=== PATIENT | male | born 1975 | race Caucasian/White ===

== ENCOUNTER 2017-01-28 21:05 | Emergency (ER) | payer OTHER ==
[~2017-01-28] VITALS: Ht 170.2 cm; Wt 81.6 kg
[~2017-01-28 21:05] MED LIST: CETI10TA22 PO; DEXT25CA4 PO; HYDR-971 PO; LAMO200T3 PO; OMEP40CA5 PO; TRAZ50TA15 PO
[2017-01-28 21:12] VITALS: BP 159/92
[2017-01-28] MEDS ORDERED: HYDR-971 PO (22:12)
--- NOTE | 2017-01-28 22:13 | PHYS DOC ---
Past Medical History Past Medical History: Seizure, Other Additional Past Medical Histor: chronic pain Past Surgical History: Other Additional Past Surgical Histo: hip replacement Alcohol Use: None Drug Use: None Adult General Chief Complaint Chief Complaint: HAND PROBLEM HPI HPI Patient is a 41 year old medical presents with moderate right ring finger knuckle pain that began today after he hit his hand on a wall. He states his pain is worse on flexion of the finger. Patient is right-handed. Review of Systems Review of Systems Constitutional: Denies fever or chills [] Musculoskeletal: right ring finger knuckle pain Integument: Denies rash or skin lesions [] Neurologic: Denies headache, focal weakness or sensory changes [] All other systems were reviewed and found to be within normal limits, except as documented in this note. Allergies Allergies Allergies Coded Allergies Type Severity Reaction Last Updated Verified Penicillins Allergy Intermediate Unknown 03/08/16 Yes morphine Adverse Reaction Mild "makes me sick" 03/08/16 No Physical Exam Physical Exam Constitutional: Well developed, well nourished, no acute distress, non-toxic appearance. [] Skin: Warm, dry, no erythema, no rash. [] Extremities: Obvious deformity noted on the right ring finger knuckle. Tenderness on palpation of the right fifth finger knuckle. Patient able to flex and extend the right fingers. +2 right radial pulse. Adequate medial and radius sensation to the right hand. Cap refill less than 2 seconds the right fingers. Neurologic: Alert and oriented X 3, normal motor function, normal sensory function, no focal deficits noted. [] Psychologic: Affect normal, judgement normal, mood normal. [] Current Patient Data Vital Signs Vital Signs Date Time Temp Pulse Resp B/P (MAP) Pulse Ox O2 Delivery O2 Flow Rate FiO2 01/28/17 21:12 98.2 95 20 96 Room Air 98.2 EKG EKG [] Radiology/Procedures Radiology/Procedures [] Course & Med Decision Making Course & Med Decision Making Pertinent Labs and Imaging studies reviewed. (See chart for details) Patient is in the ED with right hand pain after hitting his hand on a wall. Right hand x-rays interpreted by Dr. Rosenbaum were noted for right ring distal metacarpal fracture. Patient was placed in the ulnar gutter splint by the veterinary laboratory technician. His vascular exam done by me is normal, cap refill less than 2 seconds. Follow-up with orthopedic hand surgeon tomorrow. Dragon Disclaimer Dragon Disclaimer This electronic medical record was generated, in whole or in part, using a voice recognition dictation system. Departure Departure Impression: Primary Impression: Metacarpal bone fracture Disposition: 01 HOME, SELF-CARE Condition: STABLE Referrals: CHERIE RODRIGUEZ MD (PCP) ROWENA RODRIGUES MD follow up in one day Patient Instructions: Hand Fracture, Metacarpals Additional Instructions: You were seen for right hand fracture. Ice elevate the extremity. Follow-up with the provided orthopedic doctor to be seen by a hand surgeon. Call his office tomorrow. Scripts Hydrocodone/Apap 5-325 (NORCO 5-325 TABLET) 1 Each Tablet 1 TAB PO Q6-8HRS Y for PAIN, #14 TAB Prov: ALEJANDRO ALEGRE APRN 01/28/17 Problem Qualifiers Primary Impression: Metacarpal bone fracture Encounter type: initial encounter Metacarpal bone: fourth Fracture type: open Metacarpal location: other portion of metacarpal Fracture alignment: nondisplaced Laterality: right Qualified Codes: S62.394B - Other fracture of fourth metacarpal bone, right hand, initial encounter for open fracture ALEJANDRO ALEGRE APRN Jan 28, 2017 22:12
--- NOTE | 2017-01-29 07:18 | RAD ---
3 views right hand radiograph 01/28/2017 Clinical indication: Right hand pain. Comparison: Right hand radiograph 04/11/2016 Findings: There is near-complete healing of a fifth metacarpal neck fracture with palmar angulation of the distal fracture fragment. There is an acute transverse fracture of the fourth metacarpal neck with palmar angulation of the distal fracture fragment. No evidence of intra-articular extension. There is soft tissue swelling about the hand. Impression: 1. Acute fracture of the fourth metacarpal neck with palmar angulation of the distal fracture fragment. 2. Near complete healing of fifth metacarpal neck fracture with palmar angulation of the distal fracture fragment.
== END 2017-01-28 22:24 | disposition home or self-care (01) ==
LOC: ER 21:05
DX: S62.394B Other fracture of fourth metacarpal bone, right hand, initial encounter for open fracture (principal); G89.29 Other chronic pain; Z88.0 Allergy status to penicillin; Z88.5 Allergy status to narcotic agent; W22.01XA Walked into wall, initial encounter; Y93.89 Activity, other specified; Y99.8 Other external cause status; Y92.89 Other specified places as the place of occurrence of the external cause
CPT/HCPCS: 29125; 73130; 99284-25

== ENCOUNTER → 2017-07-07 | Outpatient (CLI) | payer OTHER | END | disposition home or self-care (01) | LOC: RT 07:58 | DX: R56.9 Unspecified convulsions (principal) | CPT/HCPCS: 95816 ==

== ENCOUNTER 2018-01-04 22:01 | Emergency (ER) | payer OTHER ==
[~2018-01-04] VITALS: Ht 171.4 cm; Wt 91.2 kg
[~2018-01-04 22:01] MED LIST changes: +ALBU2.5V5; +ALBU8.5H8 IH; +BENZ200C47 PO; +CLON1TAB4 PO; +DEXT20TA24 PO; +FLUT1DIS5 INH; +LAMO200T2 PO; +LORA10TA3 PO; +NABU500T PO; +OXYC20TA PO; +PHEN100C PO; +TRAZ-85 PO; -TRAZ50TA15 PO
[2018-01-04] MEDS ORDERED: IPRATRPIUM/ALBUTEROL 0.5/2.5MG 3 ML NEBU. NEB ONE (23:55)
[2018-01-04] MEDS ORDERED: methylPREDNISolone SOD SUCC PF 125 MG/2 ML VIAL. IV ONE (23:55)
[2018-01-05] MEDS ORDERED: ALBUTEROL SULFATE 2.5 MG/3 ML NEBU. CONT NEB ONE (00:45)
[2018-01-05 02:09] VITALS: BP 150/78
--- NOTE | 2018-01-05 02:31 | PHYS DOC ---
Past Medical History Past Medical History: Asthma, Seizure, Other Additional Past Medical Histor: chronic pain, ADHD Past Surgical History: Other Additional Past Surgical Histo: hip replacement, HERNIA Alcohol Use: None Drug Use: None Adult General Chief Complaint Chief Complaint: SHORTNESS OF BREATH HPI HPI Patient is a 42 year old male who presents with dyspnea and chest tightness. Patient has a known history of asthma. He states it has been exacerbated over the last week. He has been using medications at home with no relief. He was seen at his primary care doctor's office and given a prednisone taper but states the symptoms still worsened today. He has been on the prednisone for several days now. No fever or chills. He complains of some "tightness" in his chest. He does not have overt chest pain. No history of coronary artery disease. No fever or chills. He does have a dry, hacking type cough. Nonproductive. The patient is already taking Levaquin for treatment of respiratory infection. Review of Systems Review of Systems Constitutional: Denies fever or chills Eyes: Denies change in visual acuity HENT: Denies nasal congestion or sore throat Respiratory: as above GI: Denies abdominal pain Musculoskeletal: Denies back pain Integument: Denies rash Neurologic: Denies headache All other systems were reviewed and found to be within normal limits, except as documented in this note. Current Medications Current Medications Current Medications Medications (Trade) Dose Ordered Sig/Charleen Start Time Stop Time Status Last Admin Dose Admin Albuterol Sulfate (Ventolin Neb Soln) 10 mg 1X ONCE 01/05/18 00:45 01/05/18 00:47 DC 01/05/18 01:02 10 MG Albuterol/ Ipratropium (Duoneb) 3 ml 1X ONCE 01/04/18 23:55 01/04/18 23:56 DC 01/04/18 23:52 3 ML Methylprednisolone Sodium Succinate (SOLU-Medrol 125MG VIAL) 125 mg 1X ONCE 01/04/18 23:55 01/04/18 23:56 DC 01/05/18 00:31 125 MG Allergies Allergies Allergies Coded Allergies Type Severity Reaction Last Updated Verified Penicillins Allergy Intermediate Unknown 03/08/16 Yes levetiracetam Allergy Intermediate Unknown 04/12/17 Yes morphine Adverse Reaction Mild "makes me sick" 04/12/17 Yes Physical Exam Physical Exam Constitutional: Well developed, well nourished, no acute distress, non-toxic appearance HENT: Normocephalic, atraumatic, bilateral external ears normal, oropharynx moist Eyes: PERRLA Neck: Normal range of motion, no tenderness, supple Cardiovascular:Heart rate regular rhythm, no murmur Lungs & Thorax: wheezes bilaterally with prolonged exp phase and diminished air flow Abdomen: Bowel sounds normal, soft, no tenderness Skin: Warm, dry, no rash Extremities: No tenderness, no edema Neurologic: Alert and oriented X 3 Psychologic: Affect normal Current Patient Data Vital Signs Vital Signs Date Time Temp Pulse Resp B/P (MAP) Pulse Ox O2 Delivery O2 Flow Rate FiO2 01/05/18 01:00 94 Room Air 01/05/18 00:37 93 22 152/71 (98) 01/04/18 22:45 98.8 98.8 Lab Values Laboratory Tests Test 01/05/18 00:13 Troponin I Quantitative < 0.017 ng/mL (0.000-0.055) EKG EKG No STEMI Interpretation Time: 00:10 Radiology/Procedures Radiology/Procedures [] Course & Med Decision Making Course & Med Decision Making Pertinent Labs and Imaging studies reviewed. (See chart for details) Patient was evaluated in the emergency department for asthma and tach. He did have some chest tightness on EKG and troponin were completed. These were negative for any acute findings. In the ER, he received 1 DuoNeb followed by an hour-long albuterol treatment. After that, he was much improved. His lungs were clear. Patient was ready for discharge home. He was advised to continue his current regimen at home. He is already taking a prednisone taper and is currently taking the levofloxacin. Patient was advised to come back to the ER for any new or worsening symptoms. Otherwise, follow up with his primary care doctor. Dragon Disclaimer Dragon Disclaimer This electronic medical record was generated, in whole or in part, using a voice recognition dictation system. Departure Departure Impression: Primary Impression: Asthma exacerbation Disposition: HOME, SELF-CARE Condition: GOOD Patient Instructions: Asthma, Acute Bronchospasm, Asthma Attacks, Prevention ASHLEY FUENTES DO Jan 05, 2018 02:31
--- NOTE | 2018-01-05 04:00 | EKG ---
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
== END 2018-01-05 02:40 | disposition home or self-care (01) ==
LOC: ER 22:01
DX: J45.901 Unspecified asthma with (acute) exacerbation (principal); G89.29 Other chronic pain; Z88.0 Allergy status to penicillin; Z88.1 Allergy status to other antibiotic agents; Z88.5 Allergy status to narcotic agent
CPT/HCPCS: 36415; 84484; 93005; 94640; 94644; 96374; 99285; J2930; J7613; J7620

== ENCOUNTER 2019-02-23 03:30 | Inpatient (IN) | payer OTHER ==
[~2019-02-23] VITALS: Ht 170.2 cm; Wt 96.4 kg
[~2019-02-23 03:30] MED LIST changes: +ALBU2.5V8 IH; -ALBU8.5H8 IH; -CLON1TAB4 PO; +CLONAZEPAM1 MG PO; +HYDR-3164 PO; -HYDR-971 PO; -LAMO200T2 PO; +LAMO200T6 PO; +OMEP40CA45 PO; -OMEP40CA5 PO; +TRAZ-118 PO; -TRAZ-85 PO
[2019-02-23 04:13] LABS: CREATININE ISTAT 0.8 mg/dL (0.5-1.4); ION CA ISTAT 1.14 mmol/L (1.13-1.32); POTASSIUM ISTAT 3.3 mmol/L (3.5-5.0)
[2019-02-23 04:47] LABS: BASO # 0.1 x10^3/uL (0.0-0.2); BASO % 0 % (0-3); EOS # 0.2 x10^3/uL (0.0-0.7); EOS % 2 % (0-3); HEMATOCRIT 46.6 % (39.0-53.0); HEMOGLOBIN 15.5 g/dL (13.0-17.5); LYMPH # 3.3 x10^3/uL (1.0-4.8); LYMPH % 28 % (24-48); MEAN CORPUSCULAR HEMOGLOBIN 32 pg (25-35); MEAN CORPUSCULAR HGB CONC 33 g/dL (31-37); MEAN CORPUSCULAR VOLUME 97 fL (79-100); MONO # 1.3 x10^3/uL (0.0-1.1); MONO % 11 % (0-9); NEUT # 6.9 x10^3/uL (1.8-7.7); NEUT % 59 % (31-73); PLATELET COUNT 269 x10^3/uL (140-400); RED BLOOD COUNT 4.79 x10^6/uL (4.30-5.70); RED CELL DISTRIBUTION WIDTH 13.1 % (11.5-14.5); WHITE BLOOD COUNT 11.8 x10^3/uL (4.0-11.0)
--- NOTE | 2019-02-23 04:57 | RAD ---
EXAM: CHEST 1 VIEW History: Shortness of breath COMPARISON: 04/09/2017 TECHNIQUE: Single portable radiograph of the chest FINDINGS: The cardiac silhouette is unremarkable. The lungs are clear bilaterally. The costophrenic sulci are clear and well demarcated. IMPRESSION: No radiographic evidence of an acute cardiopulmonary process. Electronically signed by: Maxime Marshall MD (02/23/2019 4:54 AM) [facility]
[2019-02-23] MEDS ORDERED: IPRATRPIUM/ALBUTEROL 0.5/2.5MG 3 ML NEBU. NEB ONE ×2 (05:00→07:00)
[2019-02-23 05:05] LABS: CALCIUM 9.1 mg/dL (8.5-10.1); CREATININE 0.9 mg/dL (0.7-1.3); GFR 91.3; POTASSIUM 3.6 mmol/L (3.5-5.1)
[2019-02-23 05:10] LABS: ALBUMIN 3.8 g/dL (3.4-5.0); ALBUMIN/GLOBULIN RATIO 1.2 (1.0-1.7); TOTAL BILIRUBIN 0.2 mg/dL (0.2-1.0)
--- NOTE | 2019-02-23 05:25 | PHYS DOC ---
Past Medical History Past Medical History: Anxiety, Asthma, Bipolar, Seizure, Other Additional Past Medical Histor: chronic pain, ADHD (MUKESH CARTER MD) Past Surgical History: Other Additional Past Surgical Histo: hip replacement, HERNIA (MUKESH CARTER MD) Alcohol Use: None Drug Use: None (MUKESH CARTER MD) Adult General Chief Complaint Chief Complaint: SHORTNESS OF BREATH HPI HPI 43-year-old male presents to the emergency Department complaints of shortness of breath. Patient was seen by his primary care physician on secondary to shortness of breath with known asthma and cough. He was prescribed prednisone at that time with a taper he states he finished on Thursday. Patient describes continued shortness of breath worsening tonight. He does have 2 inhalers at home 1 including albuterol. Others unknown. Denies any fever, productive cough, does describe shortness of breath with exertion. Patient as well describes chest wall pain. Saturations 88-89% on room air. Patient provided with duoneb and steroids upon arrival (MUKESH CARTER MD) Review of Systems Review of Systems Constitutional: Denies fever or chills [] Eyes: Denies change in visual acuity, redness, or eye pain [] HENT: Denies nasal congestion or sore throat [] Respiratory: + cough/SOB Cardiovascular: No additional information not addressed in HPI [] GI: Denies abdominal pain, nausea, vomiting, bloody stools or diarrhea [] Neurologic: Denies headache, focal weakness or sensory changes [] All other systems were reviewed and found to be within normal limits, except as documented in this note. (MUKESH CARTER MD) Current Medications Current Medications Current Medications Medications (Trade) Dose Ordered Sig/Charleen Start Time Stop Time Status Last Admin Dose Admin Acetaminophen (Tylenol) 1,000 mg 1X ONCE 02/23/19 06:00 02/23/19 06:01 DC 02/23/19 05:57 1,000 MG Albuterol/ Ipratropium (Duoneb) 3 ml 1X ONCE 02/23/19 07:00 02/23/19 07:01 DC 02/23/19 06:30 3 ML Methylprednisolone Sodium Succinate (SOLU-Medrol 125MG VIAL) 125 mg 1X ONCE 02/23/19 06:00 02/23/19 06:01 DC 02/23/19 05:57 125 MG (LUCY MUNSON Jr. DO) Allergies Allergies Allergies Coded Allergies Type Severity Reaction Last Updated Verified Penicillins Allergy Intermediate 02/23/19 Yes levetiracetam Allergy Intermediate 02/23/19 Yes morphine Adverse Reaction Mild "makes me sick" 04/12/17 Yes (LUCY MUNSON Jr. DO) Physical Exam Physical Exam Constitutional: Well developed, well nourished, no acute distress, non-toxic appearance. [] HENT: Normocephalic, atraumatic, bilateral external ears normal, oropharynx moist, no oral exudates, nose normal. [] Eyes: PERRLA, EOMI, conjunctiva normal, no discharge. [] Cardiovascular: RRR, no murmur appreciated Lungs & Thorax: decreased bs bilaterally, wheeze appreciated to bilateral, tach ypnea Abdomen: Bowel sounds normal, soft, no tenderness, no masses, no pulsatile masses. [] Skin: Warm, dry, no erythema, no rash. [] Back: No tenderness, no CVA tenderness. [] Extremities: No tenderness, no edema. [] Neurologic: Alert and oriented X 3, no focal deficits noted. [] Psychologic: Affect normal, judgement normal, mood normal. [] (MUKESH CARTER MD) Current Patient Data Vital Signs Vital Signs Date Time Temp Pulse Resp B/P (MAP) Pulse Ox O2 Delivery O2 Flow Rate FiO2 02/23/19 07:17 88 124/71 (88) 92 Nasal Cannula 2.0 02/23/19 03:40 97.6 20 97.6 (LUCY MUNSON Jr. DO) Lab Values Laboratory Tests Test 02/23/19 01:32 02/23/19 04:08 02/23/19 04:15 White Blood Count 11.8 x10^3/uL (4.0-11.0) H Red Blood Count 4.79 x10^6/uL (4.30-5.70) Hemoglobin 15.5 g/dL (13.0-17.5) Hematocrit 46.6 % (39.0-53.0) Mean Corpuscular Volume 97 fL (79-100) Mean Corpuscular Hemoglobin 32 pg (25-35) Mean Corpuscular Hemoglobin Concent 33 g/dL (31-37) Red Cell Distribution Width 13.1 % (11.5-14.5) Platelet Count 269 x10^3/uL (140-400) Neutrophils (%) (Auto) 59 % (31-73) Lymphocytes (%) (Auto) 28 % (24-48) Monocytes (%) (Auto) 11 % (0-9) H Eosinophils (%) (Auto) 2 % (0-3) Basophils (%) (Auto) 0 % (0-3) Neutrophils # (Auto) 6.9 x10^3/uL (1.8-7.7) Lymphocytes # (Auto) 3.3 x10^3/uL (1.0-4.8) Monocytes # (Auto) 1.3 x10^3/uL (0.0-1.1) H Eosinophils # (Auto) 0.2 x10^3/uL (0.0-0.7) Basophils # (Auto) 0.1 x10^3/uL (0.0-0.2) Sodium Level 143 mmol/L (136-145) Potassium Level 3.6 mmol/L (3.5-5.1) Chloride Level 104 mmol/L (98-107) Carbon Dioxide Level 30 mmol/L (21-32) Anion Gap 9 (6-14) 14 mmol/L (6-14) Blood Urea Nitrogen 16 mg/dL (8-26) Creatinine 0.9 mg/dL (0.7-1.3) Estimated GFR (Cockcroft-Gault) 91.3 BUN/Creatinine Ratio 18 (6-20) Glucose Level 96 mg/dL (70-99) 98 mg/dL (70-99) Calcium Level 9.1 mg/dL (8.5-10.1) Total Bilirubin 0.2 mg/dL (0.2-1.0) Aspartate Amino Transferase (AST) 13 U/L (15-37) L Alanine Aminotransferase (ALT) 24 U/L (16-63) Alkaline Phosphatase 66 U/L (46-116) Troponin I Quantitative < 0.017 ng/mL (0.000-0.055) Total Protein 7.0 g/dL (6.4-8.2) Albumin 3.8 g/dL (3.4-5.0) Albumin/Globulin Ratio 1.2 (1.0-1.7) POC Hemoglobin 16.0 g/dL (14-18) POC Hematocrit 47 % (37-52) POC Sodium 141 mmol/L (135-145) POC Potassium 3.3 mmol/L (3.5-5.0) L POC Chloride 102 mmol/L (98-110) POC Total CO2 29 mmol/L (23-32) POC Blood Urea Nitrogen 16 mg/dL (8-26) POC Creatinine 0.8 mg/dL (0.5-1.4) POC Ionized Calcium (Liudmila) 1.14 mmol/L (1.13-1.32) POC Troponin I 0.01 ng/ml (<0.08) Laboratory Tests 02/23/19 01:32 Laboratory Tests 02/23/19 01:32 02/23/19 04:08 (LUCY MUNSON Jr. DO) EKG EKG [] (MUKESH CARTER MD) Radiology/Procedures Radiology/Procedures [facility] [address] [place] [address] IMAGING REPORT Signed PATIENT: FRANKI KAM ACCOUNT: [id number] : 1975 LOCATION: ER AGE: 43 SEX: M EXAM STATUS: REG ER ORD. PHYSICIAN: MUKESH CARTER MD REASON: soa PROCEDURE: PORTABLE CHEST 1V EXAM: CHEST 1 VIEW History: Shortness of breath COMPARISON: 04/09/2017 TECHNIQUE: Single portable radiograph of the chest FINDINGS: The cardiac silhouette is unremarkable. The lungs are clear bilaterally. The costophrenic sulci are clear and well demarcated. IMPRESSION: No radiographic evidence of an acute cardiopulmonary process. Electronically signed by: Maxime Marshall MD (02/23/2019 4:54 AM) [facility] DICTATED and SIGNED BY: MAXIME MARSHALL MD DATE: 02/23/19 0454 [] (MUKESH CARTER MD) Impressions: PROCEDURE: PORTABLE CHEST 1V EXAM: CHEST 1 VIEW History: Shortness of breath COMPARISON: 04/09/2017 TECHNIQUE: Single portable radiograph of the chest FINDINGS: The cardiac silhouette is unremarkable. The lungs are clear bilaterally. The costophrenic sulci are clear and well demarcated. IMPRESSION: No radiographic evidence of an acute cardiopulmonary process. Electronically signed by: Maxime Marshall MD (02/23/2019 4:54 AM) [facility] (LUCY MUNSON Jr., DO) Course & Med Decision Making Course & Med Decision Making Pertinent Labs and Imaging studies reviewed. (See chart for details) []43-year-old male presents to the emergency Department complaints of shortness of breath. Patient was seen by his primary care physician on secondary to shortness of breath with known asthma and cough. He was prescribed prednisone at that time with a taper he states he finished on Thursday. Patient describes continued shortness of breath worsening tonight. He does have 2 inhalers at home 1 including albuterol - unknown other. Denies any fever, productive cough, does describe shortness of breath with exertion. Patient as well describes chest wall pain. Saturations 88-89% on room air after present back in ER. Patient provided with duoneb and steroids upon arrival Duoneb provided, Solumedrol 125mg IV x 1 Xray without acute process identified Tylenol po for headache Repeat Duoneb provided Currently on 2 liters [place] Discussed with Dr. Munson regarding patient potential disposition. Will reassess after 2nd treatment and plan ambulatory saturation. (MUKESH CARTER MD) Course & Med Decision Making Patient reevaluated at 7:40 AM and he does indicate that he is having some improvement in symptoms. Patient is noted to be on 2 L at this time. Patient was withdrawn from oxygen and saturation rapidly dropped down to 8788%. Patient does admit to having some shortness of breath again. We'll call Dr. Rodriguez, patient's primary care provider, and patient will be admitted for further management. (LUCY MUNSON Jr., DO) Dragon Disclaimer Dragon Disclaimer This electronic medical record was generated, in whole or in part, using a voice recognition dictation system. (MUKESH CARTER MD) Departure Departure Impression: Primary Impression: Asthma exacerbation Additional Impression: Hypoxemia Disposition: ADMITTED INPATIENT Admitting Physician: Cherie Rodriguez (LUCY MUNSON Jr., DO) Condition: IMPROVED Referrals: CHERIE RODRIGUEZ MD (PCP) Problem Qualifiers Primary Impression: Asthma exacerbation Asthma severity: mild Asthma persistence: unspecified Qualified Codes: J45.901 - Unspecified asthma with (acute) exacerbation MUKESH CARTER MD Feb 23, 2019 05:25 LUCY MUNSON Jr., DO Feb 23, 2019 07:47
[2019-02-23] MEDS ORDERED: methylPREDNISolone SOD SUCC PF 125 MG/2 ML VIAL. IV ONE (06:00)
[2019-02-23] MEDS ORDERED: ACETAMINOPHEN 500 MG TABLET PO ONE (06:00)
[2019-02-23] MEDS: IPRATRPIUM/ALBUTEROL 0.5/2.5MG 3 ML NEBU. NEB SCH ×4 (08:27→19:38)
[2019-02-23] MEDS ORDERED: MOME13HF IH (08:52)
--- NOTE | 2019-02-23 08:58 | PDOC ---
Provider Note Provider Note [id number] CHERIE RODRIGUEZ MD Feb 23, 2019 08:58
[2019-02-23 09:15] VITALS: BP 128/72
--- NOTE | 2019-02-23 10:52 | HP ---
ADMIT DATE: 02/23/2019 CHIEF COMPLAINT: Wheezing. HISTORY OF PRESENT ILLNESS: A 43-year-old white male, smoker with asthma, who despite taking prednisone for the last 4-5 days, has had increasing shortness of breath and nonproductive cough. Chest x-ray was clear in the ER, labs okay and he was admitted for oxygen and respiratory treatments and steroids. He follows up at for his asthma. PAST MEDICAL HISTORY: He takes oxycodone for chronic nonmalignant pain as well as seizure meds and Adderall for ADD. ALLERGIES: LISTED TO KEPPRA AND PENICILLIN. SOCIAL HISTORY: He is about a [id number]-p-day smoker, not employed, single, nondrinker. FAMILY HISTORY: Unremarkable. REVIEW OF SYSTEMS: No other complaints. OBJECTIVE: ENT: All within normal limits. NECK: No masses, nodes, or bruits. LUNGS: Decreased breath sounds, a few scattered expiratory wheezes. No tachypnea. CARDIOVASCULAR: Regular rate. No murmur. ABDOMEN: Soft, benign and nontender. EXTREMITIES: Good pedal and radial pulses, unremarkable. SKIN AND NEUROLOGIC: Physiologic. ASSESSMENT: Exacerbation of chronic obstructive pulmonary disease and asthma in a smoker. Other medical problems stable. PLAN: As ordered. CHERIE RODRIGUEZ MD DR: ROMEL/laya JOB#: [id number] / [id number]
[2019-02-23 11:00] VITALS: BP 127/71
[2019-02-23] MEDS: PANTOPRAZOLE 40 MG TABLET.DR. PO SCH (11:30)
--- NOTE | 2019-02-23 11:40 | EKG ---
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
[2019-02-23] MEDS: NICOTINE 14MG PATCH. TD SCH (12:08)
[2019-02-23] MEDS: oxyCODONE IR 5 MG TABLET PO PRN ×2 (12:11→20:11)
[2019-02-23] MEDS: methylPREDNISolone SOD SUCC PF 125 MG/2 ML VIAL. IV SCH ×2 (12:22→18:03)
[2019-02-23 15:00] VITALS: BP 141/85
[2019-02-23 19:00] VITALS: BP 135/78
[2019-02-23] MEDS: lamoTRIgine 100 MG TABLET. PO SCH (22:15)
[2019-02-23] MEDS: traZODone 50 MG TABLET. PO PRN (22:16)
[2019-02-23 23:00] VITALS: BP 142/88
[2019-02-24] MEDS: methylPREDNISolone SOD SUCC PF 125 MG/2 ML VIAL. IV SCH ×2 (00:09→06:02)
[2019-02-24 03:00] VITALS: BP 124/65
[2019-02-24 05:30] LABS: BASO % 0 % (0-3); EOS % 0 % (0-3); HEMATOCRIT 45.7 % (39.0-53.0); HEMOGLOBIN 15.2 g/dL (13.0-17.5); LYMPH # 0.9 x10^3/uL (1.0-4.8); LYMPH % 7 % (24-48); MEAN CORPUSCULAR HEMOGLOBIN 33 pg (25-35); MEAN CORPUSCULAR HGB CONC 33 g/dL (31-37); MEAN CORPUSCULAR VOLUME 98 fL (79-100); MONO # 0.4 x10^3/uL (0.0-1.1); MONO % 3 % (0-9); NEUT # 11.8 x10^3/uL (1.8-7.7); NEUT % 90 % (31-73); PLATELET COUNT 276 x10^3/uL (140-400); RED BLOOD COUNT 4.66 x10^6/uL (4.30-5.70); RED CELL DISTRIBUTION WIDTH 13.4 % (11.5-14.5); WHITE BLOOD COUNT 13.1 x10^3/uL (4.0-11.0)
[2019-02-24 05:52] LABS: CALCIUM 9.9 mg/dL (8.5-10.1); CREATININE 0.8 mg/dL (0.7-1.3); GFR 104.5; POTASSIUM 4.4 mmol/L (3.5-5.1)
[2019-02-24] MEDS: oxyCODONE IR 5 MG TABLET PO PRN ×4 (06:09→22:14)
[2019-02-24 07:00] VITALS: BP 125/81
[2019-02-24] MEDS: IPRATRPIUM/ALBUTEROL 0.5/2.5MG 3 ML NEBU. NEB SCH ×5 (07:30→20:46)
[2019-02-24] MEDS: PANTOPRAZOLE 40 MG TABLET.DR. PO SCH (07:30)
[2019-02-24 08:06] LABS: % BANDS 13 % (0-9); % EOS 1 % (0-5); % LYMPHS 3 % (24-48); % METAS 1 % (0-0); % MONOS 4 % (0-10); % SEGS 78 % (35-66); PLT ESTIMATE ADEQUATE (ADEQUATE); TOXIC VACUOLATION SLIGHT
[2019-02-24 08:07] LABS: ANISOCYTOSIS SLIGHT
[2019-02-24] MEDS: NICOTINE 14MG PATCH. TD SCH (08:30)
--- NOTE | 2019-02-24 08:30 | PDOC ---
Provider Note Provider Note vss, no temp,less wheeze- labs ok- will reduce steroid now, add omedaniel garcia dc in am CHERIE RODRIGUEZ MD Feb 24, 2019 08:30
[2019-02-24 11:00] VITALS: BP 123/60
[2019-02-24] MEDS ORDERED: FLU VAX QS 2019-20 (36MOS+)/PF 0.5 ML SYRINGE. VAX IM ONE (13:30)
[2019-02-24 15:00] VITALS: BP 144/97
--- NOTE | 2019-02-24 15:42 | NUR ---
SW following for discharge planning. Chart reviewed. Pt is from home with family. Currently requiring o2. RN advised no SW needs at this time. SW will continue to follow should any discharge needs arise.
[2019-02-24 19:00] VITALS: BP 141/80
--- NOTE | 2019-02-24 21:25 | NUR ---
Per patient request, medications scheduled for 2100 to be given at 2215. Patient in bed and talking on telephone at this time, will continue to monitor.
[2019-02-24] MEDS: lamoTRIgine 100 MG TABLET. PO SCH (22:12)
[2019-02-24] MEDS: traZODone 50 MG TABLET. PO PRN (22:12)
[2019-02-24 23:00] VITALS: BP 118/70
[2019-02-25 03:00] VITALS: BP 108/59
[2019-02-25 07:00] VITALS: BP 120/76
[2019-02-25] MEDS: IPRATRPIUM/ALBUTEROL 0.5/2.5MG 3 ML NEBU. NEB SCH (07:24)
[2019-02-25] MEDS: PANTOPRAZOLE 40 MG TABLET.DR. PO SCH (07:30)
[2019-02-25] MEDS: oxyCODONE IR 5 MG TABLET PO PRN (08:07)
[2019-02-25] MEDS: NICOTINE 14MG PATCH. TD SCH (08:08)
--- NOTE | 2019-02-25 08:43 | PDOC ---
Provider Note Provider Note [id number] CHERIE RODRIGUEZ MD Feb 25, 2019 08:43
[2019-02-25] MEDS ORDERED: predniSONE 20 MG TABLET PO ONE (08:45)
--- NOTE | 2019-02-25 09:00 | DS ---
DATE OF DISCHARGE: 02/25/2019 HOSPITAL SUMMARY: A 43-year-old white male with a history of asthma who is still a heavy smoker, came in with increasing shortness of breath, wheezing and coughing. He had been taking prednisone as an outpatient. Hemoglobin was normal. White count up a little bit at 13,000. The chemistry profile was unremarkable. Sputum culture is pending with white blood cells and gram-positive cocci seen. Chest x-ray showed no acute change. He was given IV steroids, respiratory treatments and supportive care and is feeling better and comfortable to be followed as an outpatient at this time. FINAL DIAGNOSES: 1. Acute exacerbation of asthma. 2. Acute bacterial bronchitis. 3. Chronic tobacco abuse. OPERATIONS, PROCEDURES, COMPLICATIONS, CONSULTATIONS: None. DISPOSITION: Tapering dose of prednisone over 6 days. We will give him 5 days of levofloxacin 500 mg daily. Complete tobacco avoidance encouraged. Rest of meds remain the same. PROGNOSIS: Guarded. CHERIE RODRIGUEZ MD DR: ROMEL/nts JOB#: [id number] / [id number]
--- NOTE | 2019-02-25 10:00 | NUR ---
Discharge Note: FRANKI KAM4 SIMS Discharge instructions and discharge home medications reviewed with Patient and a copy given. All questions have been answered and understanding verbalized. The following instructions and handouts were given: information about medications, follow up appointment, asthma and copd. Discontinued lines and drains: IV line in right forearm removed, catheter tip intact. Patient discharged to home with self care with family member, patient ambulated to discharge vehicle.
== END 2019-02-25 10:00 | disposition home or self-care (01) | DRG 202 ==
LOC: ER 03:30 → 4 NORTH 07:44
PROVIDERS: ADMIT Family Medicine; ATTEND Family Medicine
DX: J45.901 Unspecified asthma with (acute) exacerbation (principal); J44.0 Chronic obstructive pulmonary disease with (acute) lower respiratory infection; J20.9 Acute bronchitis, unspecified; J44.1 Chronic obstructive pulmonary disease with (acute) exacerbation; F17.210 Nicotine dependence, cigarettes, uncomplicated; R09.02 Hypoxemia; Z96.649 Presence of unspecified artificial hip joint; F41.9 Anxiety disorder, unspecified; F90.9 Attention-deficit hyperactivity disorder, unspecified type; G89.29 Other chronic pain; F31.9 Bipolar disorder, unspecified; Z88.5 Allergy status to narcotic agent; Z88.0 Allergy status to penicillin; Z88.8 Allergy status to other drugs, medicaments and biological substances
CPT/HCPCS: 36415; 71045; 80047; 80048; 80053; 84484; 85007; 85025; 87070; 87205; 93005; 94640; 94760; 96374; J2930; J7512; J7620; 99285-25; G0378

== ENCOUNTER 2020-07-16 21:21 | Emergency (ER) | payer MEDICARE, OTHER ==
[~2020-07-16] VITALS: Ht 160 cm; Wt 90.0 kg
[~2020-07-16 21:21] MED LIST changes: -CETI10TA22 PO; +CETI10TA74 PO; +MOME13HF IH; -NABU500T PO; +NABU500T11 PO
--- NOTE | 2020-07-16 21:43 | PHYS DOC ---
Past Medical History Past Medical History: Anxiety, Asthma, Bipolar, Seizure, Other Additional Past Medical Histor: chronic pain, ADHD Past Surgical History: Other Additional Past Surgical Histo: hip replacement, HERNIA Smoking Status: Current Every Day Smoker Alcohol Use: None Drug Use: None General Adult EDM: Chief Complaint: DYSPNEA/RESPIRATORY DISTRESS HPI: HPI: Patient is a 45 year old male who presented to ER due to trouble breathing. Patient said he has asthma flareup. Patient has symptoms for 2 days. Patient denies any fever, no cough. Patient currently is a smoker. Patient has used albuterol inhaler and nebulizer treatment at home but did not improve so he came here for evaluation. Patient denies any coronavirus infection, denies being exposed to anybody with coronavirus infection. Patient did not have the COVID- 19 vaccine. Patient denies any chest pain, no history of diabetic, no history of coronary artery disease. Review of Systems: Review of Systems: Constitutional: Denies fever or chills. [] Eyes: Denies change in visual acuity. [] HENT: Denies nasal congestion or sore throat. [] Respiratory: Positive for shortness of air and wheezing, no cough. Cardiovascular: Denies chest pain or edema. [] GI: Denies abdominal pain, nausea, vomiting, bloody stools or diarrhea. [] : Denies dysuria. [] Musculoskeletal: Denies back pain or joint pain. [] Integument: Denies rash. [] Neurologic: Denies headache, focal weakness or sensory changes. [] Endocrine: Denies polyuria or polydipsia. [] Lymphatic: Denies swollen glands. [] Psychiatric: Denies depression or anxiety. [] Heart Score: C/O Chest Pain: N/A Risk Factors: Risk Factors: DM, Current or recent (<one month) smoker, HTN, HLP, family history of CAD, obesity. Risk Scores: Score 0 - 3: 2.5% MACE over next 6 weeks - Discharge Home Score 4 - 6: 20.3% MACE over next 6 weeks - Admit for Clinical Observation Score 7 - 10: 72.7% MACE over next 6 weeks - Early Invasive Strategies Current Medications: Current Medications Medications (Trade) Dose Ordered Sig/Charleen Start Time Stop Time Status Last Admin Dose Admin Albuterol/ Ipratropium (Duoneb) 3 ml 1X ONCE 07/16/20 21:45 5/3/21 21:46 UNV Methylprednisolone Sodium Succinate (SOLU-Medrol 125MG VIAL) 125 mg 1X ONCE 07/16/20 21:45 07/16/20 21:46 UNV Allergies: Allergies: Allergies Coded Allergies Type Severity Reaction Last Updated Verified Penicillins Allergy Intermediate 02/23/19 Yes levetiracetam Allergy Intermediate 02/23/19 Yes morphine Adverse Reaction Mild "makes me sick" 04/12/17 Yes Physical Exam: PE: Constitutional: Well developed, well nourished, no acute distress, non-toxic appearance. [] HENT: Normocephalic, atraumatic, bilateral external ears normal, oropharynx moist, no oral exudates, nose normal. [] Eyes: PERRLA, EOMI, conjunctiva normal, no discharge. [] Neck: Normal range of motion, no tenderness, supple, no stridor. [] Cardiovascular:Heart rate regular rhythm, no murmur [] Lungs & Thorax: Bilateral breath sounds diminished to auscultation [] Abdomen: Bowel sounds normal, soft, no tenderness, no masses, no pulsatile masses. [] Skin: Warm, dry, no erythema, no rash. [] Back: No tenderness, no CVA tenderness. [] Extremities: No tenderness, no cyanosis, no clubbing, ROM intact, no edema. [] Neurologic: Alert and oriented X 3, normal motor function, normal sensory function, no focal deficits noted. [] Psychologic: Affect normal, judgement normal, mood normal. [] Current Patient Data: Labs: Laboratory Tests Test 07/16/20 21:55 White Blood Count 10.9 x10^3/uL Red Blood Count 4.78 x10^6/uL Hemoglobin 16.1 g/dL Hematocrit 46.7 % Mean Corpuscular Volume 98 fL Mean Corpuscular Hemoglobin 34 pg Mean Corpuscular Hemoglobin Concent 34 g/dL Red Cell Distribution Width 13.1 % Platelet Count 309 x10^3/uL Neutrophils (%) (Auto) 68 % Lymphocytes (%) (Auto) 21 % Monocytes (%) (Auto) 7 % Eosinophils (%) (Auto) 3 % Basophils (%) (Auto) 1 % Neutrophils # (Auto) 7.4 x10^3/uL Lymphocytes # (Auto) 2.2 x10^3/uL Monocytes # (Auto) 0.8 x10^3/uL Eosinophils # (Auto) 0.4 x10^3/uL Basophils # (Auto) 0.1 x10^3/uL Sodium Level 145 mmol/L Potassium Level 4.0 mmol/L Chloride Level 106 mmol/L Carbon Dioxide Level 32 mmol/L Anion Gap 7 Blood Urea Nitrogen 14 mg/dL Creatinine 0.9 mg/dL Estimated GFR (Cockcroft-Gault) 90.4 BUN/Creatinine Ratio 16 Glucose Level 148 mg/dL Calcium Level 8.7 mg/dL Magnesium Level 2.1 mg/dL Total Bilirubin 0.1 mg/dL Aspartate Amino Transf (AST/SGOT) 14 U/L Alanine Aminotransferase (ALT/SGPT) 27 U/L Alkaline Phosphatase 84 U/L Troponin I Quantitative < 0.017 ng/mL ON-Pfn-P-Type Natriuretic Peptide 63 pg/mL Total Protein 7.1 g/dL Albumin 4.0 g/dL Albumin/Globulin Ratio 1.3 Current Medications Medications (Trade) Dose Ordered Sig/Charleen Route PRN Reason Start Time Stop Time Status Last Admin Dose Admin Methylprednisolone Sodium Succinate (SOLU-Medrol 125MG VIAL) 125 mg 1X ONCE IV 07/16/20 21:45 07/16/20 21:46 DC 07/16/20 22:10 Albuterol/ Ipratropium (Duoneb) 3 ml 1X ONCE NEB 07/16/20 21:45 07/16/20 21:46 DC 07/16/20 21:48 Albuterol Sulfate (Ventolin Neb Soln) 2.5 mg STK-MED ONCE .ROUTE 07/16/20 21:57 07/16/20 21:57 DC EKG: EKG: [] Radiology/Procedures: Radiology/Procedures: Chest x-ray show no acute disease per my reading Course & Med Decision Making: Course & Med Decision Making Pertinent Labs and Imaging studies reviewed. (See chart for details) Patient is a 45-year-old male who presented to ER due to trouble breathing. Patient was given DuoNeb treatment and albuterol neb treatment in ER, he said he feels some better. Patient would like to be discharged home. However his ox ygen saturation is still around 91 to 92% on room air. Patient said that was normal for him. This physician does not feel comfortable for this patient to be discharged home. This physician recommended for patient to be admitted to hospital for further evaluation and treatment. Patient did not want to stay. Patient said he had albuterol nebulizer at home he can use. Patient will be discharged AGAINST MEDICAL ADVICE. Notified by nurse that patient wishes to leave against medical advice. Had an extensive discussion with the patient regarding the risks of leaving AMA including but not limited to , permanent disability, and worsening condition. Patient acknowledged the risks and agreed to take full responsibility. Patient was A&Ox4 and had full medical decision making capacity. Patient signed AMA form stating they understood risks and ambulated out of ED with steady gait. Dragon Disclaimer: [employer] Disclaimer: This electronic medical record was generated, in whole or in part, using a voice recognition dictation system. Departure Departure Impression: Primary Impression: Exacerbation of asthma Disposition: 07 LEFT AGAINST MEDICAL ADVICE Condition: IMPROVED Referrals: CHERIE RODRIGUEZ MD (PCP) Follow up with your doctor tomorrow. Patient Instructions: Discharge Against Medical Advice Scripts Prednisone (PREDNISONE) 20 Mg Tablet 2 TAB PO DAILY for 7 Days, #14 TAB Prov: EVANGELINA HOPKINS DO 07/16/20 EVANGELINA HOPKINS DO July 16, 2020 21:43
[2020-07-16] MEDS ORDERED: IPRATRPIUM/ALBUTEROL 0.5/2.5MG 3 ML NEBU. NEB ONE (21:45)
[2020-07-16] MEDS ORDERED: methylPREDNISolone SOD SUCC PF 125 MG/2 ML VIAL. IV ONE (21:45)
[2020-07-16] MEDS ORDERED: ALBUTEROL SULFATE 2.5 MG/3 ML NEBU. ONE (21:57)
[2020-07-16 22:07] LABS: BASO # 0.1 x10^3/uL (0.0-0.2); BASO % 1 % (0-3); EOS # 0.4 x10^3/uL (0.0-0.7); EOS % 3 % (0-3); HEMATOCRIT 46.7 % (39.0-53.0); HEMOGLOBIN 16.1 g/dL (13.0-17.5); LYMPH # 2.2 x10^3/uL (1.0-4.8); LYMPH % 21 % (24-48); MEAN CORPUSCULAR HEMOGLOBIN 34 pg (25-35); MEAN CORPUSCULAR HGB CONC 34 g/dL (31-37); MEAN CORPUSCULAR VOLUME 98 fL (79-100); MONO # 0.8 x10^3/uL (0.0-1.1); MONO % 7 % (0-9); NEUT # 7.4 x10^3/uL (1.8-7.7); NEUT % 68 % (31-73); PLATELET COUNT 309 x10^3/uL (140-400); RED BLOOD COUNT 4.78 x10^6/uL (4.30-5.70); RED CELL DISTRIBUTION WIDTH 13.1 % (11.5-14.5); WHITE BLOOD COUNT 10.9 x10^3/uL (4.0-11.0)
[2020-07-16 22:15] LABS: CALCIUM 8.7 mg/dL (8.5-10.1); CREATININE 0.9 mg/dL (0.7-1.3); GFR 90.4
[2020-07-16 22:21] LABS: ALBUMIN/GLOBULIN RATIO 1.3 (1.0-1.7); MAGNESIUM 2.1 mg/dL (1.8-2.4); TOTAL BILIRUBIN 0.1 mg/dL (0.2-1.0); TOTAL PROTEIN 7.1 g/dL (6.4-8.2)
--- NOTE | 2020-07-16 22:21 | EKG ---
[facility] [address] [place] [address] Test Date: 2020-07-16 Test Time: 21:51:06 Pat Name: FRANKI KAM Department: Room: Gender: M Ultrasound Technol: : 1975 Requested By: EVANGELINA HOPKINS Order Number: [id number] Reading MD: Measurements Intervals [place] Rate: 83 P: 41 NE: 136 QRS: 87 QRSD: 86 T: 11 QT: 354 QTc: 416 Interpretive Statements SINUS RHYTHM R-S TRANSITION ZONE IN V LEADS DISPLACED TO THE LEFT QRS(T) CONTOUR ABNORMALITY CONSIDER INFERIOR MYOCARDIAL DAMAGE POSSIBLY ABNORMAL ECG RI6.01 No previous ECG available for comparison
[2020-07-16 23:03] VITALS: BP 182/85
[2020-07-16] MEDS ORDERED: PRED20TA PO (23:28)
--- NOTE | 2020-07-17 00:14 | RAD ---
INDICATION: Reason: SOA FOR 2 DAYS / Spl. Instructions: / History: COMPARISON: February 23, 2019 FINDINGS: Single view of chest obtained. Cardiac silhouette unremarkable. Mild hazy opacities bilaterally most prominent at lung bases. IMPRESSION: * Mild haziness of the lungs bilaterally most prominent at lung bases. Could be secondary to edema o r infiltrate. Electronically signed by: Tae Ignacio MD (07/17/2020 12:12 AM) [id number]
== END 2020-07-16 23:41 | disposition left against medical advice (07) ==
LOC: ER 21:21
DX: J45.901 Unspecified asthma with (acute) exacerbation (principal); F31.9 Bipolar disorder, unspecified; G89.29 Other chronic pain; F17.200 Nicotine dependence, unspecified, uncomplicated; Z88.0 Allergy status to penicillin; Z88.1 Allergy status to other antibiotic agents; Z88.5 Allergy status to narcotic agent
CPT/HCPCS: 36415; 71045; 80053; 83735; 83880; 84484; 85025; 93005; 94640; 94644; 96374; 99285; J2930

== ENCOUNTER 2020-09-09 06:19 | Emergency (ER) | payer MEDICARE, OTHER ==
[~2020-09-09] VITALS: Ht 170.2 cm; Wt 100.0 kg
[~2020-09-09 06:19] MED LIST changes: -OMEP40CA45 PO; +OMEP40CA7 PO; +PRED20TA PO
[2020-09-09] MEDS ORDERED: methylPREDNISolone SOD SUCC PF 125 MG/2 ML VIAL. IV ONE (07:00)
[2020-09-09] MEDS ORDERED: IPRATRPIUM/ALBUTEROL 0.5/2.5MG 3 ML NEBU. NEB ONE ×2 (07:00→08:45)
--- NOTE | 2020-09-09 07:24 | RAD ---
EXAM: Chest, single view. HISTORY: Shortness of air. COMPARISON: 07/17/2020 FINDINGS: A frontal view of the chest is obtained. There is a small focal opacity within the right mi d thorax possibly due to interstitial infiltrate. There is no consolidation, pleural effusion or pneu mothorax. The heart is normal in size. IMPRESSION: Suspected right mid thorax interstitial infiltrate. Electronically signed by: Kimi Pineda MD (09/09/2020 7:22 AM) [id number]
--- NOTE | 2020-09-09 07:30 | PHYS DOC ---
Past Medical History Past Medical History: Anxiety, Asthma, Bipolar, Seizure, Other Additional Past Medical Histor: chronic pain, ADHD Past Surgical History: Other Additional Past Surgical Histo: hip replacement, HERNIA Smoking Status: Current Every Day Smoker Alcohol Use: None Drug Use: None General Adult EDM: Chief Complaint: SHORTNESS OF BREATH HPI: HPI: Patient is a 45 year old male who presented to ER due to trouble breathing. Patient said he has asthma flareup. Patient has symptoms for 2 days. Patient denies any fever, PATIENT said he has productive cough. Patient currently is a smoker. Patient has used albuterol inhaler and nebulizer treatment at home but did not improve so he came here for evaluation. Patient denies any coronavirus infection, denies being exposed to anybody with coronavirus infection. Patient did not have the COVID-19 vaccine. Patient denies any chest pain, no history of diabetic, no history of coronary artery disease. Patient ran out of hIs DuoNeb solution at home, he still has the nebulizer machine. He also has the albuterol inhaler. Review of Systems: Review of Systems: Constitutional: Denies fever or chills. [] Eyes: Denies change in visual acuity. [] HENT: Denies nasal congestion or sore throat. [] Respiratory: Positive for cough and shortness of breath. [] Cardiovascular: Denies chest pain or edema. [] GI: Denies abdominal pain, nausea, vomiting, bloody stools or diarrhea. [] : Denies dysuria. [] Musculoskeletal: Denies back pain or joint pain. [] Integument: Denies rash. [] Neurologic: Denies headache, focal weakness or sensory changes. [] Endocrine: Denies polyuria or polydipsia. [] Lymphatic: Denies swollen glands. [] Psychiatric: Denies depression or anxiety. [] Heart Score: C/O Chest Pain: N/A Risk Factors: Risk Factors: DM, Current or recent (<one month) smoker, HTN, HLP, family history of CAD, obesity. Risk Scores: Score 0 - 3: 2.5% MACE over next 6 weeks - Discharge Home Score 4 - 6: 20.3% MACE over next 6 weeks - Admit for Clinical Observation Score 7 - 10: 72.7% MACE over next 6 weeks - Early Invasive Strategies Current Medications: Current Medications Medications (Trade) Dose Ordered Sig/Charleen Start Time Stop Time Status Last Admin Dose Admin Albuterol/ Ipratropium (Duoneb) 3 ml 1X ONCE 09/09/20 07:00 09/09/20 07:01 DC 09/09/20 07:17 3 ML Methylprednisolone Sodium Succinate (SOLU-Medrol 125MG VIAL) 125 mg 1X ONCE 09/09/20 07:00 09/09/20 07:01 DC 09/09/20 07:20 125 MG Allergies: Allergies: Allergies Coded Allergies Type Severity Reaction Last Updated Verified Penicillins Allergy Intermediate 02/23/19 Yes levetiracetam Allergy Intermediate 02/23/19 Yes morphine Adverse Reaction Mild "makes me sick" 04/12/17 Yes Physical Exam: PE: Constitutional: Well developed, well nourished, no acute distress, non-toxic appearance. [] HENT: Normocephalic, atraumatic, bilateral external ears normal, oropharynx moist, no oral exudates, nose normal. [] Eyes: PERRLA, EOMI, conjunctiva normal, no discharge. [] Neck: Normal range of motion, no tenderness, supple, no stridor. [] Cardiovascular:Heart rate regular rhythm, no murmur [] Lungs & Thorax: Bilateral breath sounds dimished with inspiratory and expiratory wheezing to auscultation , tachypnic. Abdomen: Bowel sounds normal, soft, no tenderness, no masses, no pulsatile masses. [] Skin: Warm, dry, no erythema, no rash. [] Back: No tenderness, no CVA tenderness. [] Extremities: No tenderness, no cyanosis, no clubbing, ROM intact, no edema. [] Neurologic: Alert and oriented X 3, normal motor function, normal sensory function, no focal deficits noted. [] Psychologic: Affect normal, judgement normal, mood normal. [] Current Patient Data: Vital Signs: Vital Signs Date Time Temp Pulse Resp B/P (MAP) Pulse Ox O2 Delivery O2 Flow Rate FiO2 09/09/20 07:17 93 Nasal Cannula 2.0 09/09/20 06:36 91 24 149/90 (109) 09/09/20 06:24 98.2 98.2 EKG: EKG: EKG was done at 920, heart rate 89 bpm, sinus rhythm, no ST segment elevation, right axis deviation Radiology/Procedures: Radiology/Procedures: [facility] [address] [place] [address] IMAGING REPORT Signed PATIENT: FRANKI KAM ACCOUNT: [id number] : 1975 LOCATION: ER AGE: 45 SEX: M EXAM STATUS: REG ER ORD. PHYSICIAN: EVANGELINA HOPKINS DO REASON: soa PROCEDURE: CHEST AP ONLY EXAM: Chest, single view. HISTORY: Shortness of air. COMPARISON: 07/17/2020 FINDINGS: A frontal view of the chest is obtained. There is a small focal opacity within the right mid thorax possibly due to interstitial infiltrate. There is no consolidation, pleural effusion or pneumothorax. The heart is normal in size. IMPRESSION: Suspected right mid thorax interstitial infiltrate. Electronically signed by: Kimi Flores MD (09/09/2020 7:22 AM) [id number] DICTATED and SIGNED BY: KIMI FLORES MD DATE: 09/09/20 [id number] 0 Course & Med Decision Making: Course & Med Decision Making Pertinent Labs and Imaging studies reviewed. (See chart for details) Patient is a 45-year-old male who presented to ER due to trouble breathing. Patient had asthmatic exacerbation. Patient oxygen saturation is 88% on room air, his oxygen saturation went up to 94% with 2 L oxygen. Patient was given 2 DuoNeb treatment in ER, he feel much better. However patient was still wheezing and his oxygen saturation was still below 90% without oxygen. This physician recommended patient need to be admitted to the hospital for further evaluation and treatment. Patient however declined admission, patient stated that his left him with children at home and he need to go home and take care of the children. Patient denies suicidal ideation. He is mentally stable with full medical decision-making. Patient will sign out AGAINST MEDICAL ADVICE. Notified by nurse that patient wishes to leave against medical advice. Had an extensive discussion with the patient regarding the risks of leaving AMA including but not limited to , permanent disability, and worsening condition. Patient acknowledged the risks and agreed to take full responsibility. Patient was A&Ox4 and had full medical decision making capacity. Patient signed AMA form stating they understood risks and ambulated out of ED with steady gait. I will prescribe him DuoNeb solution, ProAir inhaler, and steroid. Patient is recommended to follow-up with his doctor tomorrow morning. Michael Disclaimer: Michael Disclaimer: This electronic medical record was generated, in whole or in part, using a voice recognition dictation system. Departure Departure Impression: Primary Impression: Asthma exacerbation attacks Disposition: LEFT AGAINST MEDICAL ADVICE Condition: STABLE Referrals: CHERIE RODRIGUEZ MD (PCP) Follow-up with your doctor tomorrow Patient Instructions: Discharge Against Medical Advice Additional Instructions: Thank you for visiting our Emergency Department. We appreciate you trusting us with your care. If any additional problems come up don't hesitate to return to visit us. Please follow up with your primary care provider so they can plan additional care if needed and know about the problem that you had. If symptoms worsen come back to the Emergency Department. Any concerning symptoms that start such as chest pain, shortness of air, weakness or numbness on one side of the body, running high fevers or any other concerning symptoms return to the ER. Scripts Albuterol Sulfate (PROAIR HFA INHALER) 8.5 Gm Hfa.aer.ad 2 PUFF IH PRN Q4-6HRS PRN for wheezing for 30 Days, #1 INHALER 0 Refills Prov: EVANGELINA HOPKINS DO 09/09/20 Ipratropium/Albuterol Sulfate (DUONEB 0.5-3(2.5) MG/3 ML) 3 Ml Ampul.neb 3 ML NEB QID PRN for shortness of air for 30 Days, #120 EACH Prov: EVANGELINA HOPKINS DO 09/09/20 Prednisone (PREDNISONE) 50 Mg Tablet 1 TAB PO DAILY for 7 Days, #7 TAB Prov: EVANGELINA HOPKINS DO 09/09/20 EVANGELINA HOPKINS DO Sep 09, 2020 07:30
[2020-09-09 07:59] LABS: BASO % 0 % (0-3); EOS % 0 % (0-3); HEMATOCRIT 48.1 % (39.0-53.0); HEMOGLOBIN 16.2 g/dL (13.0-17.5); LYMPH # 0.7 x10^3/uL (1.0-4.8); LYMPH % 6 % (24-48); MEAN CORPUSCULAR HEMOGLOBIN 33 pg (25-35); MEAN CORPUSCULAR HGB CONC 34 g/dL (31-37); MEAN CORPUSCULAR VOLUME 99 fL (79-100); MONO # 0.8 x10^3/uL (0.0-1.1); MONO % 6 % (0-9); NEUT % 88 % (31-73); PLATELET COUNT 317 x10^3/uL (140-400); RED BLOOD COUNT 4.85 x10^6/uL (4.30-5.70); RED CELL DISTRIBUTION WIDTH 13.5 % (11.5-14.5); WHITE BLOOD COUNT 12.6 x10^3/uL (4.0-11.0)
[2020-09-09 08:11] LABS: CALCIUM 9.2 mg/dL (8.5-10.1); CREATININE 0.9 mg/dL (0.7-1.3); GFR 90.4; POTASSIUM 4.4 mmol/L (3.5-5.1)
[2020-09-09] MEDS ORDERED: lamoTRIgine 100 MG TABLET. PO ONE (08:15)
[2020-09-09 08:16] LABS: ALBUMIN 3.6 g/dL (3.4-5.0); ALBUMIN/GLOBULIN RATIO 1.2 (1.0-1.7); MAGNESIUM 2.5 mg/dL (1.8-2.4); TOTAL BILIRUBIN 0.2 mg/dL (0.2-1.0); TOTAL PROTEIN 6.6 g/dL (6.4-8.2)
[2020-09-09] MEDS ORDERED: ALBU2.5V8 IH (09:52)
[2020-09-09] MEDS ORDERED: PRED50TA PO (09:52)
[2020-09-09] MEDS ORDERED: IPRA3AMP29 NEB (09:52)
--- NOTE | 2020-09-09 10:11 | EKG ---
[facility] [address] [place] [address] Test Date: 2020-09-09 Test Time: 09:24:11 Pat Name: FRANKI KAM Department: Room: Gender: M Spa Coordinator: : 1975 Requested By: EVANGELINA HOPKINS Order Number: [id number] Reading MD: Measurements Intervals [place] Rate: 89 P: 43 GA: 124 QRS: 98 QRSD: 82 T: 56 QT: 326 QTc: 398 Interpretive Statements SINUS RHYTHM RIGHTWARD AXIS OTHERWISE NORMAL ECG RI6.02 No previous ECG available for comparison
[2020-09-09 10:15] VITALS: BP 152/86
[2020-09-09 10:38] LABS: % BANDS 8 % (0-9); % EOS 1 % (0-5); % LYMPHS 7 % (24-48); % MONOS 6 % (0-10); % MYELOS 1 % (0-0); % SEGS 77 % (35-66); PLT ESTIMATE ADEQUATE (ADEQUATE)
[2020-09-11] MEDS ORDERED: PROAIR RESPICL90 MCG IH (21:37)
[2020-09-11] MEDS ORDERED: FLUT9.9S NS (21:37)
== END 2020-09-09 10:39 | disposition left against medical advice (07) ==
LOC: ER 06:19
DX: J45.901 Unspecified asthma with (acute) exacerbation (principal); F31.9 Bipolar disorder, unspecified; G89.29 Other chronic pain; F17.200 Nicotine dependence, unspecified, uncomplicated; Z88.0 Allergy status to penicillin; Z88.1 Allergy status to other antibiotic agents; Z88.5 Allergy status to narcotic agent
CPT/HCPCS: 36415; 71045; 80053; 83735; 83880; 84484; 85007; 85025; 93005; 94640; 96374; 99285; J2930

== ENCOUNTER 2020-11-20 15:47 | Emergency (ER) | payer MEDICARE, OTHER ==
[~2020-11-20] VITALS: Ht 170.2 cm; Wt 105.0 kg
[~2020-11-20 15:47] MED LIST changes: +FLUT9.9S NS; +IPRA3AMP29 NEB; +PRED50TA PO; +PROAIR RESPICL90 MCG IH
[2020-11-20 16:10] VITALS: BP 135/75
[2020-11-20] MEDS ORDERED: IV NORMAL SALINE 1000ML BAG 1,000 ML IV ONE (16:15)
--- NOTE | 2020-11-20 16:25 | PHYS DOC ---
Past Medical History Past Medical History: Anxiety, Asthma, Bipolar, COPD, Seizure, Other Additional Past Medical Histor: chronic pain, ADHD Past Surgical History: Other Additional Past Surgical Histo: hip replacement, HERNIA Smoking Status: Former Smoker Alcohol Use: None Drug Use: None General Adult EDM: Chief Complaint: SEIZURE HPI: HPI: Patient is a 45 year old male who presents with 6 seizure today where his girlfriend states he has a feeling that they are coming on and his hand and legs will shake and then he gets up and sleeps it off. Patient denies biting his tongue, losing his bowel or having incontinence. States he does have a headache that he rates a 9 out of 10. He states has not vomited. Girlfriend states last night he had 1 and he rolled off the bed hitting his face on the floor. He does have what looks like old bruising or redness on his forehead and to his nose. 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 Patient has an appointment with Dr. Maynard here in December. Patient states he takes Lamictal 600 mg twice daily. He states he has been taking it as he supposed to. He states that they tried to add in Dilantin and Keppra but he stopped taking them because he " had a bad reaction to it where he would have worse seizures and be out of it more than normal." Patient states he is not vaccinated for Covid because he is scared. He does smoke. Has a history of COPD, asthma, cancer of the fifth metacarpal, ADHD, bipolar, bilateral hip replacement and hernia surgery. Denies dizziness, vision change, numbness or tingling, focal weakness, abdominal pain, nausea, vomiting, diarrhea, fever, cou gh, shortness of air, chest pain, neck pain, back pain. Review of Systems: Review of Systems: Constitutional: Denies fever or chills. [] Eyes: Denies change in visual acuity. [] HENT: Denies nasal congestion or sore throat. [] Respiratory: Denies cough or shortness of breath. [] Cardiovascular: Denies chest pain or edema. [] GI: Denies abdominal pain, nausea, vomiting, bloody stools or diarrhea. [] : Denies dysuria. [] Musculoskeletal: Denies back pain or joint pain. [] Integument: Denies rash. [] Neurologic: Denies headache, focal weakness or sensory changes. [] Endocrine: Denies polyuria or polydipsia. [] Lymphatic: Denies swollen glands. [] Psychiatric: Denies depression or anxiety. [] Heart Score: C/O Chest Pain: No Risk Factors: Risk Factors: DM, Current or recent (<one month) smoker, HTN, HLP, family history of CAD, obesity. Risk Scores: Score 0 - 3: 2.5% MACE over next 6 weeks - Discharge Home Score 4 - 6: 20.3% MACE over next 6 weeks - Admit for Clinical Observation Score 7 - 10: 72.7% MACE over next 6 weeks - Early Invasive Strategies Current Medications: Current Medications Medications (Trade) Dose Ordered Sig/Charleen Start Time Stop Time Status Last Admin Dose Admin Sodium Chloride 1,000 ml @ 1,000 mls/hr 1X ONCE 11/20/20 16:15 11/20/20 17:14 Allergies: Allergies: Allergies Coded Allergies Type Severity Reaction Last Updated Verified Penicillins Allergy Intermediate 02/23/19 Yes levetiracetam Allergy Intermediate 02/23/19 Yes morphine Adverse Reaction Mild "makes me sick" 11/20/20 Yes Physical Exam: PE: Constitutional: Well developed, well nourished, no acute distress, non-toxic appearance. [] HENT: Normocephalic, atraumatic, bilateral external ears normal, oropharynx moist, no oral exudates, nose normal. [] Eyes: PERRLA, EOMI, conjunctiva normal, no discharge. [] Neck: Normal range of motion, no tenderness, supple, no stridor. [] Cardiovascular:Heart rate regular rhythm, no murmur [] Lungs & Thorax: Bilateral breath sounds clear to auscultation [] Abdomen: Bowel sounds normal, soft, no tenderness, no masses, no pulsatile masses. [] Skin: Warm, dry, no erythema, no rash. Bruising and possible superficial abrasion to forehead and bridge of nose [] Back: No tenderness, no CVA tenderness. [] Extremities: No tenderness, no cyanosis, no clubbing, ROM intact, no edema. [] Neurologic: Alert and oriented X 3, normal motor function, normal sensory function, no focal deficits noted. [] Psychologic: Affect normal, judgement normal, mood normal. [] Current Patient Data: Vital Signs: Vital Signs Date Time Temp Pulse Resp B/P (MAP) Pulse Ox O2 Delivery O2 Flow Rate FiO2 11/20/20 16:10 98.1 80 16 135/75 94 Room Air 98.1 EKG: EKG: [] Radiology/Procedures: Radiology/Procedures: [] Impression: [place] [id number] IMAGING REPORT Signed PATIENT: FRANKI KAM ACCOUNT: [id number] : 1975 LOCATION: ER AGE: 45 SEX: M EXAM STATUS: REG ER ORD. PHYSICIAN: JOAN PATEL APRN REASON: SEIZURE PROCEDURE: PORTABLE CHEST 1V INDICATION: Reason: SEIZURE / Spl. Instructions: / History: COMPARISON: September 09, 2020 FINDINGS: Single view of chest obtained. Mild elevation of the right hemidiaphragm. There is some mild hazy opacity at the lung bases without definite consolidation elsewhere in the lungs. No gross osseous destructive lesion. IMPRESSION: * Mild hazy opacity at lung bases. This is commonly secondary to atelectasis but would correlate with symptoms to ensure there is not an early infiltrate contributing. Electronically signed by: Jovita Rodriguez MD (11/20/2020 4:47 PM) [id number] DICTATED and SIGNED BY: JOVITA RODRIGUEZ MD DATE: 11/20/20 [id number] [id number] IMAGING REPORT Signed PATIENT: FRANKI KAM ACCOUNT: [id number] : 1975 LOCATION: ER AGE: 45 SEX: M EXAM STATUS: REG ER ORD. PHYSICIAN: JOAN PATEL APRN REASON: SEIZURE, FALL PROCEDURE: CT HEAD AND MAXILLOFACIAL WO Exam: CT head and maxillofacial without contrast INDICATION: Seizure, fall TECHNIQUE: Sequential axial images through the head and maxillofacial were obtained without the administration of IV contrast. Exposure: One or more of the following in the visualized dose reduction techniques were utilized for this examination: 1. Automated exposure control 2. Adjustment of the MA and/or KV according to patient size 3. Use of iterative of reconstructive technique Comparisons: None FINDINGS: Head: No focal parenchymal lesion or hemorrhage is identified. There is no midline shift or sulcal effacement. No acute vascular territory infarction is identified. Lund-white distinction is preserved. The ventricular system is within normal limits without compression hydrocephalus. The basal cisterns are well maintained. Face: The visualized portions of the paranasal sinuses and mastoid air cells are well- pneumatized. No acute fractures. Globes and orbital contents. IMPRESSION: 1. No acute intracranial abnormality. 2. No acute traumatic injury identified at the face Electronically signed by: Eleazar Garcia MD (11/20/2020 5:02 PM) [facility] DICTATED and SIGNED BY: ELEAZAR GARCIA MD DATE: 11/20/20 [id number] 0 Course & Med Decision Making: Course & Med Decision Making Pertinent Labs and Imaging studies reviewed. (See chart for details) See HPI. Alert and oriented x4. Ambulatory with a steady gait. Speaks in full clear sentences. Answers all questions appropriately. Skin pink warm and dry. Abrasions or bruising to patient's forehead and bridge of nose. No swelling to the face. No trauma to his eyes. Moving all extremities normally and with equal strength and claim rep. No sensation loss. PERRLA. No nystagmus. Work-up has been unremarkable. Talk to Dr. Maynard who states to give him a one-time dose of clonazepam 0.5 mg here in the ED. He states he has no further medications he wants to add. Patient has not had any seizure activity since he has been here. He is alert and oriented. [] Dragon Disclaimer: Dragon Disclaimer: This electronic medical record was generated, in whole or in part, using a voice recognition dictation system. Departure Departure Impression: Primary Impression: Seizure Disposition: 01 HOME / SELF CARE / HOMELESS Condition: STABLE Referrals: CHERIE RODRIGUEZ MD (PCP) Patient Instructions: Seizure, Adult Additional Instructions: Follow-up with Dr. Espinosa as scheduled. Continue taking your medications. Follow-up with primary care provider if needed. Return for uncontrolled seizure activity. Drink plenty of fluids. JOAN PATEL SERVICE TECHNICIAN COPIER Nov 20, 2020 16:25
[2020-11-20 16:34] LABS: BASO # 0.1 x10^3/uL (0.0-0.2); BASO % 1 % (0-3); EOS # 0.2 x10^3/uL (0.0-0.7); EOS % 2 % (0-3); HEMATOCRIT 48.8 % (39.0-53.0); HEMOGLOBIN 16.9 g/dL (13.0-17.5); LYMPH # 2.8 x10^3/uL (1.0-4.8); LYMPH % 26 % (24-48); MEAN CORPUSCULAR HEMOGLOBIN 34 pg (25-35); MEAN CORPUSCULAR HGB CONC 35 g/dL (31-37); MEAN CORPUSCULAR VOLUME 97 fL (79-100); MONO # 1.2 x10^3/uL (0.0-1.1); MONO % 11 % (0-9); NEUT # 6.6 x10^3/uL (1.8-7.7); NEUT % 60 % (31-73); PLATELET COUNT 308 x10^3/uL (140-400); RED CELL DISTRIBUTION WIDTH 13.2 % (11.5-14.5); WHITE BLOOD COUNT 10.9 x10^3/uL (4.0-11.0)
[2020-11-20 16:45] LABS: CALCIUM 9.4 mg/dL (8.5-10.1); CREATININE 0.9 mg/dL (0.7-1.3); GFR 90.4; POTASSIUM 3.9 mmol/L (3.5-5.1)
--- NOTE | 2020-11-20 16:49 | RAD ---
INDICATION: Reason: SEIZURE / Spl. Instructions: / History: COMPARISON: September 09, 2020 FINDINGS: Single view of chest obtained. Mild elevation of the right hemidiaphragm. There is some mild hazy opacity at the lung bases without definite consolidation elsewhere in the kevin gs. No gross osseous destructive lesion. IMPRESSION: * Mild hazy opacity at lung bases. This is commonly secondary to atelectasis but would correlate wit h symptoms to ensure there is not an early infiltrate contributing. Electronically signed by: Tae Ignacio MD (11/20/2020 4:47 PM) [id number]
[2020-11-20 16:59] LABS: ALBUMIN 3.5 g/dL (3.4-5.0); TOTAL BILIRUBIN 0.3 mg/dL (0.2-1.0); TOTAL PROTEIN 7.1 g/dL (6.4-8.2)
--- NOTE | 2020-11-20 17:05 | RAD ---
Exam: CT head and maxillofacial without contrast INDICATION: Seizure, fall TECHNIQUE: Sequential axial images through the head and maxillofacial were obtained without the admin istration of IV contrast. Exposure: One or more of the following in the visualized dose reduction techniques were utilized for this examination: 1. Automated exposure control 2. Adjustment of the MA and/or KV according to patient size 3. Use of iterative of reconstructive technique Comparisons: None FINDINGS: Head: No focal parenchymal lesion or hemorrhage is identified. There is no midline shift or sulcal effaceme nt. No acute vascular territory infarction is identified. Lund-white distinction is preserved. The ventricular system is within normal limits without compression hydrocephalus. The basal cisterns are well maintained. Face: The visualized portions of the paranasal sinuses and mastoid air cells are well-pneumatized. No acute fractures. Globes and orbital contents. IMPRESSION: 1. No acute intracranial abnormality. 2. No acute traumatic injury identified at the face Electronically signed by: Eleazar Cole MD (11/20/2020 5:02 PM) [facility]
[2020-11-20] MEDS ORDERED: ALBUTEROL SULFATE 2.5 MG/3 ML NEBU. NEB ONE (17:15)
[2020-11-20 17:44] LABS: BILIRUBIN,URINE NEGATIVE (NEG); CLARITY,URINE CLOUDY; COLOR,URINE YELLOW; NITRITE,URINE NEGATIVE (NEG); PH,URINE 5.5 (<5.0-8.0); PROTEIN,URINE NEGATIVE (NEG-TRACE)
[2020-11-20 17:50] LABS: AMPHETAMINE/METHAMPHETAMINE NEG (NEG); BARBITURATES NEG (NEG); BENZODIAZEPINES NEG (NEG); CANNABINOIDS NEG (NEG); COCAINE NEG (NEG); METHADONE NEG (NEG); OPIATES POS (NEG); PHENCYCLIDINE NEG (NEG)
[2020-11-20 17:51] LABS: BACTERIA,URINE FEW /HPF (0-FEW); RBC,URINE 0 /HPF (0-2)
[2020-11-20] MEDS ORDERED: clonazePAM 0.5 MG TABLET PO ONE (19:30)
--- NOTE | 2020-11-21 18:03 | NUR ---
IP: Informed pt of negative covid test. Pt verbalized understanding.
== END 2020-11-20 20:01 | disposition home or self-care (01) ==
LOC: ER 15:47
DX: S00.83XA Contusion of other part of head, initial encounter (principal); S00.33XA Contusion of nose, initial encounter; R56.9 Unspecified convulsions; F31.9 Bipolar disorder, unspecified; J44.9 Chronic obstructive pulmonary disease, unspecified; F90.9 Attention-deficit hyperactivity disorder, unspecified type; G89.29 Other chronic pain; Z87.891 Personal history of nicotine dependence; Z88.0 Allergy status to penicillin; Z88.1 Allergy status to other antibiotic agents; Z88.5 Allergy status to narcotic agent; W06.XXXA Fall from bed, initial encounter; Y93.89 Activity, other specified; Y92.89 Other specified places as the place of occurrence of the external cause; Y99.8 Other external cause status
CPT/HCPCS: 36415; 70450; 70486; 71045; 80053; 80175; 80307; 81001; 83605; 84484; 85025; 87426; 94640; 96360; 99285; J7030; J7613; U0003; U0005

== ENCOUNTER 2021-01-25 05:49 | Inpatient (IN) | payer MEDICARE, OTHER ==
[~2021-01-25] VITALS: Ht 170.2 cm; Wt 86.4 kg
[2021-01-25 07:46] LABS: BASE EXCESS COOX 5 mmol/L (-3-3); HCO3 COOX 34 mmol/L (21-28); METHEMOGLOBIN 0.2 % (0.0-1.9); OXYHEMOGLOBIN 90.8 %; PO2 COOX 62 mmHg (75-108); SAT O2 COOX 91 % (92-99)
[2021-01-25 07:48] LABS: PCO2 COOX 66 mmHg (35-46)
[2021-01-25] MEDS ORDERED: ALBUTEROL SULFATE 2.5 MG/3 ML NEBU. NEB ONE (08:00)
--- NOTE | 2021-01-25 08:04 | RAD ---
XR CHEST 1V 01/25/2021 7:29 AM INDICATION: Cough, dyspnea COMPARISON: 11/20/2020 TECHNIQUE: Portable frontal view of the chest is provided. FINDINGS: The cardiomediastinal silhouette is within normal limits. Mild increase interstitial prominence as co mpared to prior examination. There are no significant pleural effusions. There is no pulmonary vascular congestion. No pneumothora x. No suspicious osseous abnormality. IMPRESSION: Mild increase interstitial prominence as compared to prior examination may reflect interstitial pneum onitis or interstitial edema. Short-term follow-up two-view chest radiograph could be of benefit. Electronically signed by: Leeann Anne MD (01/25/2021 8:02 AM) [facility]
--- NOTE | 2021-01-25 08:50 | PHYS DOC ---
Past Medical History Past Medical History: Anxiety, Asthma, Bipolar, COPD, Seizure, Other Additional Past Medical Histor: chronic pain, ADHD Past Surgical History: Other Additional Past Surgical Histo: hip replacement, HERNIA Smoking Status: Current Every Day Smoker Alcohol Use: None Drug Use: None General Adult EDM: Chief Complaint: SHORTNESS OF BREATH HPI: HPI: Patient is a 45 year old male who presents with 2 to 3 days of progressively worsening dyspnea, wheezing, cough with yellow sputum. He reports he has not felt well for a few weeks. He denies fevers or chills. He denies chest pain. He denies hemoptysis. He denies lower extremity swelling or calf pain. He denies recent travel, denies recent hospitalization, denies recent known sick contacts. He does report some nausea and vomiting as well as posttussive emesis. He has no appetite and has not had much to eat or drink in the last 24 hours. He is not vaccinated against Covid or influenza. He repeatedly insists that he does not have "the virus." He has asthma and COPD and he wears supplemental nasal cannula oxygen at night. Review of Systems: Review of Systems: Constitutional: Denies fever or chills. [] Eyes: Denies change in visual acuity. [] HENT: Reports nasal congestion. Denies sore throat. Respiratory: Reports cough, yellow sputum production, dyspnea and wheezing. Cardiovascular: Denies chest pain or edema. [] GI: Denies abdominal pain. Reports nausea and vomiting. Denies bowel habit changes. Musculoskeletal: Denies back pain or joint pain. [] Integument: Denies rash. [] Neurologic: Denies headache, focal weakness or sensory changes. [] Endocrine: Denies polyuria or polydipsia. [] Lymphatic: Denies swollen glands. [] Psychiatric: Denies depression or anxiety. [] Heart Score: C/O Chest Pain: No Risk Factors: Risk Factors: DM, Current or recent (<one month) smoker, HTN, HLP, family history of CAD, obesity. Risk Scores: Score 0 - 3: 2.5% MACE over next 6 weeks - Discharge Home Score 4 - 6: 20.3% MACE over next 6 weeks - Admit for Clinical Observation Score 7 - 10: 72.7% MACE over next 6 weeks - Early Invasive Strategies Current Medications: Current Medications Medications (Trade) Dose Ordered Sig/Charleen Start Time Stop Time Status Last Admin Dose Admin Albuterol Sulfate (Ventolin Neb Soln) 2.5 mg 1X ONCE 01/25/21 08:00 01/25/21 08:01 DC 01/25/21 07:52 2.5 MG Allergies: Allergies: Allergies Coded Allergies Type Severity Reaction Last Updated Verified Penicillins Allergy Intermediate 02/23/19 Yes levetiracetam Allergy Intermediate 02/23/19 Yes morphine Adverse Reaction Mild "makes me sick" 11/20/20 Yes Physical Exam: PE: Constitutional: Well developed, well nourished. He appears much older than stated age. He is ill-appearing, in mild to moderate respiratory distress HENT: Normocephalic, atraumatic, mucous membranes are moist. Eyes: Sclera clear, anicteric Neck: Trachea midline, no JVD Cardiovascular: Tachycardic, regular, +2 radial and dorsalis pedis pulses bilaterally. No peripheral edema. Lungs & Thorax: Tachypnea, diminished breath sounds throughout, faint end expiratory wheezes noted bilaterally, no stridor. Intercostal retractions noted. He does speak in full and clear sentences. Bilateral rhonchi noted. Abdomen: Abdomen soft, nondistended, nontender to palpation. Skin: Warm, dry, no erythema, no rash. [] Back: No tenderness, no CVA tenderness. [] Extremities: No tenderness, no cyanosis, no clubbing, ROM intact, no edema. No calf tenderness. Neurologic: Awake, alert, oriented x3, moves all 4 extremities equally, ambulating around his room, sensation grossly intact, speech is clear and fluent, sensation grossly intact, no facial asymmetry Psychologic: Anxious, mildly agitated, relatively uncooperative, verbally redirectable Current Patient Data: Labs: Laboratory Tests Test 01/25/21 07:44 O2 Saturation 91 % (92-99) L Arterial Blood pH 7.32 (7.35-7.45) L Arterial Blood pCO2 at Patient Temp 66 mmHg (35-46) *H Arterial Blood pO2 at Patient Temp 62 mmHg (75-108) L Arterial Blood HCO3 34 mmol/L (21-28) H Arterial Blood Base Excess 5 mmol/L (-3-3) H Oxyhemoglobin 90.8 % Methemoglobin 0.2 % (0.0-1.9) Carbon Monoxide, Quantitative 0.3 % (0.0-1.9) FiO2 44/ 6l nc Vital Signs: Vital Signs Date Time Temp Pulse Resp B/P (MAP) Pulse Ox O2 Delivery O2 Flow Rate FiO2 01/25/21 08:15 114 19 144/72 (96) 93 Nasal Cannula 6.0 EKG: EKG: EKG interpreted at 0628 Rhythm is sinus tachycardia Rate is 112 bpm No STEMI EKG is interpreted at 1246 Rhythm is sinus tachycardia Rate is 107 bpm No STEMI Radiology/Procedures: Radiology/Procedures: IMAGING REPORT Signed PATIENT: FRANKI KAM ACCOUNT: [id number] : 1975 LOCATION: ER AGE: 45 SEX: M EXAM STATUS: PRE ER ORD. PHYSICIAN: JENNIFER BETANCOURT DO REASON: cough, dyspnea PROCEDURE: PORTABLE CHEST 1V XR CHEST 1V 01/25/2021 7:29 AM INDICATION: Cough, dyspnea COMPARISON: 11/20/2020 TECHNIQUE: Portable frontal view of the chest is provided. FINDINGS: The cardiomediastinal silhouette is within normal limits. Mild increase interstitial prominence as compared to prior examination. There are no significant pleural effusions. There is no pulmonary vascular congestion. No pneumothorax. No suspicious osseous abnormality. IMPRESSION: Mild increase interstitial prominence as compared to prior examination may reflect interstitial pneumonitis or interstitial edema. Short-term follow-up two-view chest radiograph could be of benefit. Electronically signed by: Kassandra Pablo MD (01/25/2021 8:02 AM) [facility] DICTATED and SIGNED BY: KASSANDRA PABLO MD DATE: 01/25/21 [id number] 0 Course & Med Decision Making: Course & Med Decision Making Pertinent Labs and Imaging studies reviewed. (See chart for details) Patient is given DuoNeb's, albuterol neb, IV Solu-Medrol. Blood cultures are obtained. He is given IV Rocephin and p.o. azithromycin empirically for treatment of COPD exacerbation. He has continued to be noncompliant wearing his oxygen, but he overall does appear to be somewhat improved, and oxygen is stable when he wears his supplemental oxygen treatment. He is still wheezing, though overall respiratory status is much improved.. Tachypnea still present, though he is now moving air, wheezing is more audible, and overall respiratory status is modestly improved. I have discussed the findings, differential diagnosis and plan of care with the patient. I explained my recommendation for admission. He verbalized understanding and is comfortable with this plan. His primary care physician is Dr. Cherie Rodriguez, and Dr. Randhawa is on-call for him, so Dr. Randhawa accepts him for admission. Dragon Disclaimer: Dragon Disclaimer: This electronic medical record was generated, in whole or in part, using a voice recognition dictation system. Departure Departure Impression: Primary Impression: COPD exacerbation Additional Impression: Respiratory failure with hypoxia Disposition: ADMITTED INPATIENT Admitting Physician: Franki Randhawa Condition: GUARDED Referrals: CHERIE RODRIGUEZ MD (PCP) JENNIFER BETANCOURT DO Jan 25, 2021 08:50
[2021-01-25] MEDS ORDERED: cefTRIAXone IV Push 2 GM VIAL. IVP ONE (09:30)
[2021-01-25] MEDS ORDERED: AZITHROMYCIN 250 MG TABLET. PO ONE (09:30)
[2021-01-25] MEDS ORDERED: ONDANSETRON PF 4 MG/2 ML VIAL. IVP ONE (10:00)
[2021-01-25] MEDS ORDERED: IV NORMAL SALINE 1000ML BAG 1,000 ML IV ONE (10:30)
[2021-01-25] MEDS ORDERED: ALBUTEROL SULFATE 2.5 MG/3 ML NEBU. NEB PRN ×3 (10:30→21:15)
[2021-01-25] MEDS ORDERED: ONDANSETRON PF 4 MG/2 ML VIAL. IVP PRN (10:30)
[2021-01-25] MEDS ORDERED: methylPREDNISolone SOD SUCC PF 125 MG/2 ML VIAL. IV SCH ×2 (10:30→11:00)
[2021-01-25] MEDS ORDERED: methylPREDNISolone SOD SUCC PF 125 MG/2 ML VIAL. IV ONE (11:00)
[2021-01-25] MEDS ORDERED: IPRATRPIUM/ALBUTEROL 0.5/2.5MG 3 ML NEBU. NEB ONE (11:00)
[2021-01-25 11:27] LABS: BILIRUBIN,URINE SMALL (NEG); CLARITY,URINE CLEAR; COLOR,URINE AMBER; NITRITE,URINE NEGATIVE (NEG); PROTEIN,URINE >=300 mg/dL (NEG-TRACE); UROBILINOGEN,URINE 0.2 mg/dL (0.2 mg/dL)
[2021-01-25 11:36] LABS: BACTERIA,URINE 0 /HPF (0-FEW)
[2021-01-25 11:37] LABS: HYALINE CASTS, URINE FEW /HPF
[2021-01-25 11:45] VITALS: BP 136/72
[2021-01-25] MEDS ORDERED: ACETAMINOPHEN 500 MG TABLET PO ONE (11:45)
[2021-01-25] MEDS ORDERED: CLONAZEPAM 1 MG PO PRN (12:00)
[2021-01-25] MEDS ORDERED: CLONAZEPAM1 MG PO ×2 (12:07→12:09)
[2021-01-25] MEDS ORDERED: MONT-38 PO (12:07)
[2021-01-25] MEDS ORDERED: DICL75TA PO (12:07)
[2021-01-25] MEDS ORDERED: PANT40TA77 PO (12:07)
[2021-01-25] MEDS ORDERED: CELE200C PO (12:07)
[2021-01-25] MEDS ORDERED: TIOT18CA IH (12:07)
[2021-01-25] MEDS ORDERED: clonazePAM 0.5 MG TABLET PO PRN ×2 (12:15→12:30)
[2021-01-25] MEDS: oxyCODONE IR 5 MG TABLET PO PRN ×2 (13:13→22:27)
[2021-01-25] MEDS: CELECOXIB 100 MG CAPSULE. PO SCH (13:14)
[2021-01-25] MEDS: PANTOPRAZOLE 40 MG TABLET.DR. PO SCH (13:14)
[2021-01-25] MEDS: FLUTICASONE 50MCG/NASAL SPRAY 16GM BOTTLE. NS SCH (13:15)
[2021-01-25] MEDS: methylPREDNISolone SOD SUCC PF 40 MG/ML VIAL. IV SCH ×2 (13:15→22:30)
[2021-01-25] MEDS ORDERED: IPRATRPIUM/ALBUTEROL 0.5/2.5MG 3 ML NEBU. NEB SCH (14:00)
--- NOTE | 2021-01-25 14:39 | EKG ---
[facility] [address] [place] [address] Test Date: 2021-01-25 Test Time: 11:07:28 Pat Name: FRANKI KAM Department: Room: [facility]– [place][note 2] Gender: M Business Architect: : 1975 Requested By: JENNIFER BETANCOURT Order Number: [id number] Reading MD: Colton Babin MD Measurements Intervals [place] Rate: 107 P: 0 AL: 130 QRS: 94 QRSD: 88 T: 37 QT: 304 QTc: 405 Interpretive Statements SINUS TACHYCARDIA Electronically Signed On 01-27-2021 14:00:16 CARPENTER ASSEMBLER by Colton Babin MD
[2021-01-25] MEDS: IPRATRPIUM/ALBUTEROL 0.5/2.5MG 3 ML NEBU. NEB SCH ×2 (14:58→20:00)
[2021-01-25 15:00] VITALS: BP 151/70
[2021-01-25 16:00] LABS: BASO % 0 % (0-3); EOS % 0 % (0-3); HEMATOCRIT 47.9 % (39.0-53.0); HEMOGLOBIN 16.5 g/dL (13.0-17.5); LYMPH # 0.5 x10^3/uL (1.0-4.8); LYMPH % 3 % (24-48); MEAN CORPUSCULAR HEMOGLOBIN 33 pg (25-35); MEAN CORPUSCULAR HGB CONC 34 g/dL (31-37); MEAN CORPUSCULAR VOLUME 97 fL (79-100); MONO # 0.3 x10^3/uL (0.0-1.1); MONO % 2 % (0-9); NEUT # 16.5 x10^3/uL (1.8-7.7); NEUT % 96 % (31-73); PLATELET COUNT 376 x10^3/uL (140-400); RED BLOOD COUNT 4.93 x10^6/uL (4.30-5.70); RED CELL DISTRIBUTION WIDTH 12.5 % (11.5-14.5); WHITE BLOOD COUNT 17.3 x10^3/uL (4.0-11.0)
[2021-01-25 16:07] LABS: CALCIUM 9.9 mg/dL (8.5-10.1); CREATININE 0.8 mg/dL (0.7-1.3); GFR 103.6; POTASSIUM 4.9 mmol/L (3.5-5.1)
[2021-01-25 16:15] LABS: ALBUMIN 3.2 g/dL (3.4-5.0); ALBUMIN/GLOBULIN RATIO 0.6 (1.0-1.7); TOTAL BILIRUBIN 0.2 mg/dL (0.2-1.0); TOTAL PROTEIN 8.2 g/dL (6.4-8.2)
[2021-01-25 16:47] LABS: % BANDS 29 % (0-9); % LYMPHS 3 % (24-48); % MONOS 1 % (0-10); % SEGS 67 % (35-66); PLT ESTIMATE ADEQUATE (ADEQUATE)
[2021-01-25] MEDS ORDERED: NICOTINE 14MG PATCH. TD PRN (18:15)
[2021-01-25 19:00] VITALS: BP 126/97
[2021-01-25] MEDS: DICLOFENAC SODIUM 25 MG TABLET.DR PO SCH ×2 (21:00→22:28)
[2021-01-25] MEDS ORDERED: FLU VACC QUAD 21-22 (6MOS+) PF 0.5 ML SYRINGE. VAX IM ONE (21:00)
[2021-01-25] MEDS ORDERED: ALBUTEROL SULFATE 8GM INHALER. INH PRN (22:00)
[2021-01-25] MEDS: lamoTRIgine 100 MG TABLET. PO SCH (22:26)
[2021-01-25] MEDS: MONTELUKAST SODIUM 10 MG TABLET. PO SCH (22:28)
[2021-01-25] MEDS: traZODone 50 MG TABLET. PO PRN (22:28)
[2021-01-25] MEDS: IPRATROPIUM/ALBUTEROL 20/100mcg/INH INHALER. INH SCH (22:29)
[2021-01-25 23:00] VITALS: BP 141/82
[2021-01-26 03:00] VITALS: BP 129/73
[2021-01-26] MEDS: methylPREDNISolone SOD SUCC PF 40 MG/ML VIAL. IV SCH ×3 (06:11→21:09)
[2021-01-26 07:00] VITALS: BP 125/68
--- NOTE | 2021-01-26 07:57 | CONS ---
DATE OF CONSULTATION: 01/26/2021 REASON FOR CONSULTATION: I was asked to see this 45-year-old gentleman for acute respiratory failure, acute exacerbation of chronic obstructive pulmonary disease. HISTORY OF PRESENT ILLNESS: He has history of [id number] smoking and continues to smoke about 1 pack per day. He told to ER doctor that he is on oxygen at night on 4 liters per minute via nasal cannula, but he tells me that he is not on oxygen, he does not have oxygen at home. He has had increased shortness of breath, cough with sputum production for the past few days, he has had wheezing. He is not vaccinated for COVID. He has snoring and excessive daytime sleepiness. He has not had a sleep study. PAST MEDICAL HISTORY: COPD, asthma, seizure, chronic pain, ADHD, hip replacement. ALLERGIES: PENICILLIN, MORPHINE AND LEVETIRACETAM. MEDICATIONS: Currently, he is on albuterol p.r.n., Combivent 1 puff q.i.d., Singulair, Voltaren, Solu-Medrol 80 mg IV q.8 hours, Flonase, Protonix, Celebrex. He had Rocephin and azithromycin in the ER. SOCIAL HISTORY: History of [id number] smoking, continues to smoke 1 pack per day. FAMILY HISTORY: Hypertension. REVIEW OF SYSTEMS: As mentioned as above, other systems otherwise negative. PHYSICAL EXAMINATION: GENERAL: This is an overweight gentleman. His BMI is 29.8. VITAL SIGNS: Temperature 98.5, heart rate 84, blood pressure 129/73, respiratory rate 18, O2 saturation on 5 liters of oxygen is 96%. HEENT: Normocephalic, atraumatic. Pupils equal, round, and reactive to light. CARDIOVASCULAR: Regular rate and rhythm. CHEST: Inspection is normal. LUNGS: A few end expiratory wheezing. ABDOMEN: Soft and obese. Bowel sounds are good. EXTREMITIES: There is no edema. LYMPHATICS: There is no lymphadenopathy. NEUROLOGIC: Alert and oriented. LABORATORY DATA: I reviewed the following lab data: Chest x-ray shows increased interstitial marking. Reportedly, his rapid COVID is negative, it is not in chart. WBC 17.3, hemoglobin 16.5, platelets 376. ABG: pH 7.32, pCO2 of 66, pO2 of 62 on 6 liters of oxygen. Sodium 136, potassium 4.9, chloride 96, CO2 of 38, BUN 13, creatinine 0.8, lactic acid 1. AST 12, ALT 16. Troponin 9. BNP 150. IMPRESSION: 1. Acute hypoxemic respiratory failure secondary to acute exacerbation of chronic obstructive pulmonary disease, acute bronchitis, rule out COVID-19. 2. Abnormal chest x-ray. 3. Acute exacerbation of chronic obstructive pulmonary disease. 4. Acute bronchitis. 5. Tobacco habituation. 6. Obesity, snoring and excessive daytime sleepiness, probable obstructive sleep apnea-hypopnea syndrome. 7. History of seizure. PLAN AND RECOMMENDATIONS: 1. Titrate FiO2 to keep O2 saturation 90%. 2. Continue bronchodilator. 3. Follow up COVID-19 testing. 4. Agree with Rocephin and azithromycin. 5. Continue Solu-Medrol. Taper as his respiratory status improves. 6. Lovenox for DVT prophylaxis. 7. Protonix for stress ulcer prophylaxis. 8. I have discussed obstructive sleep apnea-hypopnea syndrome, the importance of diagnosis and treatment, if untreated, increased cardiovascular and NOC TECHNICIAN morbidity and mortality. I do recommend a sleep study as an outpatient. 9. I had a long discussion with him regarding smoking cessation. I have advised him to stop smoking forever. 10. He would require 6-minute walk at discharge. Thank you very much for allowing me to participate in care of this very nice gentleman. I have discussed the findings and recommendations with the patient and RN. The patient understood and agreed to proceed with the plan. CHICHI PENG: Bob TID: [id number]
[2021-01-26] MEDS: IPRATROPIUM/ALBUTEROL 20/100mcg/INH INHALER. INH SCH (08:25)
[2021-01-26] MEDS: PANTOPRAZOLE 40 MG TABLET.DR. PO SCH (08:25)
[2021-01-26] MEDS: CELECOXIB 100 MG CAPSULE. PO SCH ×2 (08:25→09:00)
[2021-01-26] MEDS ORDERED: NON FORMULARY ITEM (Tiotropium Bromide (Spiriva) 2 INH) IH SCH (09:00)
[2021-01-26] MEDS: FLUTICASONE 50MCG/NASAL SPRAY 16GM BOTTLE. NS SCH (09:00)
[2021-01-26] MEDS: DICLOFENAC SODIUM 25 MG TABLET.DR PO SCH ×2 (09:00→20:25)
[2021-01-26 10:51] VITALS: BP 103/58
[2021-01-26] MEDS: ACETAMINOPHEN 325 MG TABLET. PO PRN (13:07)
[2021-01-26] MEDS: oxyCODONE IR 5 MG TABLET PO PRN ×2 (13:09→21:19)
[2021-01-26 15:00] VITALS: BP 113/60
[2021-01-26] MEDS: IPRATRPIUM/ALBUTEROL 0.5/2.5MG 3 ML NEBU. NEB SCH ×2 (15:23→18:18)
--- NOTE | 2021-01-26 21:00 | HP ---
DATE OF SERVICE: 01/26/2021 ADMIT DATE: 01/25/2021 CHIEF COMPLAINT AND HISTORY OF PRESENT ILLNESS: This 45-year-old male with long smoking history, presented to the Emergency Room with shortness of breath and cough, was felt to have an exacerbation of COPD and admitted for the same with acute hypoxic respiratory failure as a result. PAST MEDICAL HISTORY: Remarkable for COPD, asthma, history of ADHD, seizures, hip replacement, chronic pain. ALLERGIES: INCLUDE PENICILLIN, MORPHINE, KEPPRA. MEDICATIONS: Listed on the computer and have been addressed. SOCIAL HISTORY: The patient is a smoker and continues to smoke. FAMILY HISTORY: Unremarkable. REVIEW OF SYSTEMS: As mentioned above. PHYSICAL EXAMINATION: GENERAL: He is well-developed, well-nourished white male, in no acute distress. VITAL SIGNS: Stable. He is afebrile. He is on 6 liters per nasal cannula O2. LABORATORY DATA: Chest x-ray shows mild increased interstitial prominence that could reflect interstitial pneumonitis or edema. Initial labs are remarkable for leukocytosis with white count of 17,000 with left shift. Initial blood gas shows a pCO2 of 66, pO2 of 62 on 6 liters with a pH of 7.32. Chemistries are remarkable for an elevated carbon dioxide at 38, albumin low at 3.2. Urine is unremarkable and COVID testing is negative. IMPRESSION: Exacerbation of chronic obstructive pulmonary disease with acute hypoxic respiratory failure. PLAN: Steroids, fluids, antibiotics, pulmonary toilet, pulmonary consultation. The patient will be monitored, managed and treated appropriately. VASQUEZ DR: Gentry TID: [id number]
[2021-01-26] MEDS: MONTELUKAST SODIUM 10 MG TABLET. PO SCH (21:09)
[2021-01-26] MEDS: traZODone 50 MG TABLET. PO PRN (21:09)
[2021-01-26] MEDS: lamoTRIgine 100 MG TABLET. PO SCH (21:09)
[2021-01-26 23:06] VITALS: BP 141/69
[2021-01-27] MEDS: MONTELUKAST SODIUM 10 MG TABLET. PO SCH (02:17)
[2021-01-27 03:00] VITALS: BP 132/71
--- NOTE | 2021-01-27 05:11 | NUR ---
threat monitoring analyst dc'd this am. Patient continuously removed monitor. He had no cardiac events in 48 hours.
[2021-01-27] MEDS: methylPREDNISolone SOD SUCC PF 40 MG/ML VIAL. IV SCH ×3 (05:27→22:32)
[2021-01-27 07:00] VITALS: BP 128/56
--- NOTE | 2021-01-27 07:22 | PDOC ---
PULMONARY PROGRESS NOTES DATE: 01/27/21 TIME: 07:18 Subjective on 02 3 lpm sob better has occ cough now he say he has 02 at home to use qhs but he doesnt use it Vitals Vital Signs Date Time Temp Pulse Resp B/P (MAP) Pulse Ox O2 Delivery O2 Flow Rate FiO2 01/27/21 03:00 98.1 72 18 132/71 (91) 96 Nasal Cannula 6.0 98.1 ROS: No Nausea, No Chest Pain General: Alert, Oriented X4 HEENT: Other (nc at [facility] ) Lungs: Clear Cardiovascular: S1 Abdomen: Soft, Non-tender Neuro Exam: Alert Extremities: No Edema Skin: Warm Labs Laboratory Tests Test 01/25/21 07:44 01/25/21 11:00 01/25/21 14:10 01/25/21 15:50 O2 Saturation 91 % (92-99) Arterial Blood pH 7.32 (7.35-7.45) Arterial Blood pCO2 at Patient Temp 66 mmHg (35-46) Arterial Blood pO2 at Patient Temp 62 mmHg (75-108) Arterial Blood HCO3 34 mmol/L (21-28) Arterial Blood Base Excess 5 mmol/L (-3-3) Oxyhemoglobin 90.8 % Methemoglobin 0.2 % (0.0-1.9) Carbon Monoxide, Quantitative 0.3 % (0.0-1.9) FiO2 44/ 6l nc Urine Collection Type Unknown Urine Color Iris Urine Clarity Clear Urine pH 6.0 (<5.0-8.0) Urine Specific [place] >=1.030 (1.000-1.030) Urine Protein >=300 mg/dL (NEG-TRACE) Urine Glucose (UA) 100 mg/dL (NEG) Urine Ketones (Stick) >=80 mg/dL (NEG) Urine Blood Small (NEG) Urine Nitrite Negative (NEG) Urine Bilirubin Small (NEG) Urine Urobilinogen Dipstick 0.2 mg/dL (0.2 mg/dL) Urine Leukocyte Esterase Negative (NEG) Urine RBC 1-2 /HPF (0-2) Urine WBC 1-4 /HPF (0-4) Urine Bacteria 0 /HPF (0-FEW) Urine Hyaline Casts Few /HPF Urine Mucus Marked /LPF SARS-CoV-2 RNA (CELIA) Negative (Negative) White Blood Count 17.3 x10^3/uL (4.0-11.0) Red Blood Count 4.93 x10^6/uL (4.30-5.70) Hemoglobin 16.5 g/dL (13.0-17.5) Hematocrit 47.9 % (39.0-53.0) Mean Corpuscular Volume 97 fL (79-100) Mean Corpuscular Hemoglobin 33 pg (25-35) Mean Corpuscular Hemoglobin Concent 34 g/dL (31-37) Red Cell Distribution Width 12.5 % (11.5-14.5) Platelet Count 376 x10^3/uL (140-400) Neutrophils (%) (Auto) 96 % (31-73) Lymphocytes (%) (Auto) 3 % (24-48) Monocytes (%) (Auto) 2 % (0-9) Eosinophils (%) (Auto) 0 % (0-3) Basophils (%) (Auto) 0 % (0-3) Neutrophils # (Auto) 16.5 x10^3/uL (1.8-7.7) Lymphocytes # (Auto) 0.5 x10^3/uL (1.0-4.8) Monocytes # (Auto) 0.3 x10^3/uL (0.0-1.1) Eosinophils # (Auto) 0.0 x10^3/uL (0.0-0.7) Basophils # (Auto) 0.0 x10^3/uL (0.0-0.2) Segmented Neutrophils % 67 % (35-66) Band Neutrophils % 29 % (0-9) Lymphocytes % 3 % (24-48) Monocytes % 1 % (0-10) Platelet Estimate Adequate (ADEQUATE) Sodium Level 136 mmol/L (136-145) Potassium Level 4.9 mmol/L (3.5-5.1) Chloride Level 96 mmol/L (98-107) Carbon Dioxide Level 38 mmol/L (21-32) Anion Gap 2 (6-14) Blood Urea Nitrogen 13 mg/dL (8-26) Creatinine 0.8 mg/dL (0.7-1.3) Estimated GFR (Cockcroft-Gault) 103.6 BUN/Creatinine Ratio 16 (6-20) Glucose Level 176 mg/dL (70-99) Lactic Acid Level 1.0 mmol/L (0.4-2.0) Calcium Level 9.9 mg/dL (8.5-10.1) Total Bilirubin 0.2 mg/dL (0.2-1.0) Aspartate Amino Transf (AST/SGOT) 12 U/L (15-37) Alanine Aminotransferase (ALT/SGPT) 16 U/L (16-63) Alkaline Phosphatase 73 U/L (46-116) Troponin I High Sensitivity 9 ng/L (4-75) MM-Ctw-I-Type Natriuretic Peptide 150 pg/mL (0-124) Total Protein 8.2 g/dL (6.4-8.2) Albumin 3.2 g/dL (3.4-5.0) Albumin/Globulin Ratio 0.6 (1.0-1.7) Medications Active Scripts Medications Dose Route/Sig Max Daily Dose Days Date Category Clonazepam 1 Mg Tablet 1 Mg PO PRN QID PRN 01/25/21 Reported Clonazepam 1 Mg Tablet 1 Mg PO PRN QID PRN 01/25/21 Reported Montelukast Sodium 10 Mg Tablet 10 Mg PO DAILY 01/25/21 Reported Diclofenac Sodium 75 Mg Tablet.dr 1 Tab PO BID 01/25/21 Reported Spiriva (Tiotropium [place]) 18 Mcg Cap.w.dev 2 Inh IH DAILY 01/25/21 Reported Pantoprazole Sodium (Pantoprazole Sodium) 40 Mg Tablet.dr 40 Mg PO DAILYAC 01/25/21 Reported Celebrex (Celecoxib) 200 Mg Capsule 1 Cap PO DAILY 01/25/21 Reported Flonase Allergy Relief (Fluticasone Propionate) 9.9 Ml [place].susp 2 Sprays NS DAILY 09/11/20 Reported Proair Respiclick (Albuterol Sulfate) 90 Mcg Aer.pow.ba 2 Puff IH PRN Q4-6HRS PRN 09/11/20 Reported Duoneb 0.5-3(2.5) Mg/3 Ml (Albuterol/Ipratropium) 3 Ml Ampul.neb 3 Ml NEB QID PRN 30 09/09/20 Rx Dulera 200 Mcg/5 Mcg Inhaler (Mometasone/Formoterol) 13 Gm Hfa.aer.ad 1 Puff IH BID 02/23/19 Reported Lamotrigine 200 Mg Tablet 400 Mg PO HS 04/10/17 Reported Oxycodone Hcl 20 Mg Tablet 20 Mg PO PRN QID PRN 04/10/17 Reported Trazodone Hcl 50 Mg Tablet 50 Mg PO HS PRN 03/18/13 Reported Impression . IMPRESSION: 1. Acute hypoxemic respiratory failure secondary to acute exacerbation of chronic obstructive pulmonary disease, acute bronchitis, COVID-19 neg 2. Abnormal chest x-ray. 3. Acute exacerbation of chronic obstructive pulmonary disease. 4. Acute bronchitis. 5. Tobacco habituation. 6. Obesity, snoring and excessive daytime sleepiness, probable obstructive sleep apnea-hypopnea syndrome. 7. History of seizure. Plan . PLAN AND RECOMMENDATIONS: 1. Titrate FiO2 to keep O2 saturation 90%. 6 min walk at dc 2. Continue bronchodilator. 3. COVID-19 testing neg. 4. Agree with Rocephin and azithromycin. 5. change Solu-Medrol to 40 q 8hrs 6. Lovenox for DVT prophylaxis. 7. Protonix for stress ulcer prophylaxis. 8. I have discussed obstructive sleep apnea-hypopnea syndrome, the importance of diagnosis and treatment, if untreated, increased cardiovascular and FISH[employer] TERRAPIN morbidity and mortality. I do recommend a sleep study as an outpatient. 9. I had a long discussion with him regarding smoking cessation. I have advised him to stop smoking forever. discussed w pt and rn MARYANN YIN MD Jan 27, 2021 07:21
[2021-01-27] MEDS: PANTOPRAZOLE 40 MG TABLET.DR. PO SCH (07:30)
[2021-01-27] MEDS: IPRATRPIUM/ALBUTEROL 0.5/2.5MG 3 ML NEBU. NEB SCH ×4 (07:34→20:01)
[2021-01-27] MEDS: CELECOXIB 100 MG CAPSULE. PO SCH (09:00)
[2021-01-27] MEDS: ENOXAPARIN 40 MG/0.4 ML SYRINGE. SQ SCH (09:00)
[2021-01-27] MEDS: DICLOFENAC SODIUM 25 MG TABLET.DR PO SCH ×2 (09:00→21:00)
[2021-01-27] MEDS: FLUTICASONE 50MCG/NASAL SPRAY 16GM BOTTLE. NS SCH (09:00)
[2021-01-27 11:00] VITALS: BP 130/59
[2021-01-27] MEDS: oxyCODONE IR 5 MG TABLET PO PRN ×2 (12:02→20:32)
[2021-01-27] MEDS: ACETAMINOPHEN 325 MG TABLET. PO PRN (13:54)
[2021-01-27 15:00] VITALS: BP 145/86
[2021-01-27] MEDS: cefTRIAXone IV Push 1 GM VIAL. IVP SCH (16:47)
[2021-01-27] MEDS: AZITHROMYCIN 500 MG in IV NORMAL SALINE 250ML 250 ML IV SCH (16:48)
[2021-01-27] MEDS ORDERED: AZITHRMYCN 500MG IVPB FOR OMNI 250 ML IV SCH (17:00)
[2021-01-27 19:00] VITALS: BP 133/83
--- NOTE | 2021-01-27 20:32 | PN ---
DATE: 01/27/2021 LOCATION: He is in room 502. SUBJECTIVE: This 45-year-old male remains hospitalized with exacerbation of chronic obstructive pulmonary disease, acute hypoxic respiratory failure and leukocytosis. He also does have an abnormal chest x-ray. He feels like he is breathing somewhat better today and would like to be discharged soon. He does have home O2, but nothing portable like tank in his room and feels like he would need one of those at discharge as he was going to be discharged soon. OBJECTIVE: VITAL SIGNS: Stable. He is afebrile, awake and alert. CHEST: Still with expiratory wheezes. HEART: Regular rate and rhythm. ABDOMEN: Benign. EXTREMITIES: No edema. LABORATORY DATA: Blood cultures are negative to date. White count on admission was 17,000, but would expect with steroids, it probably is not went down much. IMPRESSION: 1. Exacerbation of chronic obstructive pulmonary disease with acute hypoxic respiratory failure, leukocytosis on admission. 2. Abnormal chest x-ray. 3. Tobacco abuse. 4. Obesity with question of obstructive sleep apnea per pulmonary. 5. History of seizures. PLAN: Continue oxygen support, which currently is in the 5-6 liters range. He has ongoing steroids. His antibiotics have dropped off as listed and I will restart them. Discharge planning based on improvement on daily assessment. MARIBEL DR: Gentry TID: [id number]
[2021-01-27] MEDS: lamoTRIgine 100 MG TABLET. PO SCH (22:32)
[2021-01-27] MEDS: traZODone 50 MG TABLET. PO PRN (22:33)
[2021-01-27 23:00] VITALS: BP 140/80
[2021-01-28 03:00] VITALS: BP 143/73
[2021-01-28] MEDS: methylPREDNISolone SOD SUCC PF 40 MG/ML VIAL. IV SCH ×2 (05:46→14:36)
[2021-01-28 07:00] VITALS: BP 109/54
[2021-01-28] MEDS: IPRATRPIUM/ALBUTEROL 0.5/2.5MG 3 ML NEBU. NEB SCH ×3 (07:18→15:19)
--- NOTE | 2021-01-28 08:00 | PN ---
DATE: 01/28/2021 DAILY PROGRESS NOTE LOCATION: He is in room 502. SUBJECTIVE: This 45-year-old male remains hospitalized with exacerbation of COPD with acute hypoxic respiratory failure and leukocytosis. He continues to slowly improve, but is not at his baseline. Requests pain medicines every 4 hours during the day as needed while awake and that is how he takes them at home, but no more than 4 a day. OBJECTIVE: VITAL SIGNS: Stable. He is afebrile. O2 is down to 2.5 liters this morning. CHEST: With minimal wheezing at this point. HEART: Regular rate and rhythm. ABDOMEN: Benign. EXTREMITIES: No edema. ASSESSMENT: Exacerbation of chronic obstructive pulmonary disease with acute hypoxic respiratory failure, improving. PLAN: Continue present support. Pulmonary to help direct discharge planning when they feel safe. ABBY DR: Gentry TID: [id number]
[2021-01-28] MEDS: FLUTICASONE 50MCG/NASAL SPRAY 16GM BOTTLE. NS SCH ×2 (09:00→09:17)
[2021-01-28] MEDS: CELECOXIB 100 MG CAPSULE. PO SCH ×2 (09:14→09:20)
[2021-01-28] MEDS: PANTOPRAZOLE 40 MG TABLET.DR. PO SCH ×2 (09:14→09:19)
[2021-01-28] MEDS: DICLOFENAC SODIUM 25 MG TABLET.DR PO SCH ×3 (09:15→09:26)
[2021-01-28] MEDS: ENOXAPARIN 40 MG/0.4 ML SYRINGE. SQ SCH ×2 (09:16→09:23)
[2021-01-28] MEDS: oxyCODONE IR 5 MG TABLET PO PRN ×2 (09:33→14:42)
--- NOTE | 2021-01-28 10:29 | NUR ---
SW following. Discussed with RN, pt from home, 2.5L (uses oxygen at home), regular diet, COVID-19 negative. Pulmonology following. Pt wanting to go home today. RN advised no SW needs at this time. SW will continue to follow.
[2021-01-28 11:00] VITALS: BP 139/86
--- NOTE | 2021-01-28 11:35 | PDOC ---
PULMONARY PROGRESS NOTES DATE: 01/28/21 TIME: 11:35 Subjective Feels better, was asking if he could discharge home Vitals Vital Signs Date Time Temp Pulse Resp B/P (MAP) Pulse Ox O2 Delivery O2 Flow Rate FiO2 01/28/21 11:06 90 Room Air 01/28/21 08:00 2.5 01/28/21 07:00 97.9 72 109/54 (72) 97.9 01/27/21 23:00 17 ROS: No Nausea, No Chest Pain General: Alert, Oriented X4 HEENT: Other (nc at [facility] [place] ) Lungs: Clear Cardiovascular: S1 Abdomen: Soft, Non-tender Neuro Exam: Alert Extremities: No Edema Skin: Warm Medications Active Scripts Medications Dose Route/Sig Max Daily Dose Days Date Category Clonazepam 1 Mg Tablet 1 Mg PO PRN QID PRN 01/25/21 Reported Clonazepam 1 Mg Tablet 1 Mg PO PRN QID PRN 01/25/21 Reported Montelukast Sodium 10 Mg Tablet 10 Mg PO DAILY 01/25/21 Reported Diclofenac Sodium 75 Mg Tablet.dr 1 Tab PO BID 01/25/21 Reported Spiriva (Tiotropium [place]) 18 Mcg Cap.w.dev 2 Inh IH DAILY 01/25/21 Reported Pantoprazole Sodium (Pantoprazole Sodium) 40 Mg Tablet.dr 40 Mg PO DAILYAC 01/25/21 Reported Celebrex (Celecoxib) 200 Mg Capsule 1 Cap PO DAILY 01/25/21 Reported Flonase Allergy Relief (Fluticasone Propionate) 9.9 Ml [place].susp 2 Sprays NS DAILY 09/11/20 Reported Proair Respiclick (Albuterol Sulfate) 90 Mcg Aer.pow.ba 2 Puff IH PRN Q4-6HRS PRN 09/11/20 Reported Duoneb 0.5-3(2.5) Mg/3 Ml (Albuterol/Ipratropium) 3 Ml Ampul.neb 3 Ml NEB QID PRN 30 09/09/20 Rx Dulera 200 Mcg/5 Mcg Inhaler (Mometasone/Formoterol) 13 Gm Hfa.aer.ad 1 Puff IH BID 02/23/19 Reported Lamotrigine 200 Mg Tablet 400 Mg PO HS 04/10/17 Reported Oxycodone Hcl 20 Mg Tablet 20 Mg PO PRN QID PRN 04/10/17 Reported Trazodone Hcl 50 Mg Tablet 50 Mg PO HS PRN 03/18/13 Reported Impression . IMPRESSION: 1. Acute hypoxemic respiratory failure secondary to acute exacerbation of chronic obstructive pulmonary disease, acute bronchitis, COVID-19 neg 2. Abnormal chest x-ray. 3. Acute exacerbation of chronic obstructive pulmonary disease. 4. Acute bronchitis. 5. Tobacco habituation. 6. Obesity, snoring and excessive daytime sleepiness, probable obstructive sleep apnea-hypopnea syndrome. 7. History of seizure. Plan . Updated 01/28 Okay to discharge home Follow-up in my office Steroids and doxycycline upon discharge PLAN AND RECOMMENDATIONS: 1. Titrate FiO2 to keep O2 saturation 90%. 6 min walk at dc 2. Continue bronchodilator. 3. COVID-19 testing neg. 4. Agree with Rocephin and azithromycin. 5. change Solu-Medrol to 40 q 8hrs 6. Lovenox for DVT prophylaxis. 7. Protonix for stress ulcer prophylaxis. 8. I have discussed obstructive sleep apnea-hypopnea syndrome, the importance of diagnosis and treatment, if untreated, increased cardiovascular and [employer] CHASER morbidity and mortality. I do recommend a sleep study as an outpatient. 9. I had a long discussion with him regarding smoking cessation. I have advised him to stop smoking forever. discussed w pt and rn BOUBACAR GUERRERO MD Jan 28, 2021 11:35
[2021-01-28 15:22] VITALS: BP 139/86
[2021-01-28 16:06] VITALS: BP 122/69
--- NOTE | 2021-01-28 16:12 | NUR ---
pt requested 15mg of the 20 mg dose. 15mg removed form omnicell and given.
[2021-01-28] MEDS: AZITHROMYCIN 500 MG in IV NORMAL SALINE 250ML 250 ML IV SCH (17:00)
[2021-01-28] MEDS ORDERED: DOXY100C3 PO (17:17)
[2021-01-28] MEDS ORDERED: METH4TAB2 PO (17:17)
[2021-01-28] MEDS: cefTRIAXone IV Push 1 GM VIAL. IVP SCH (17:53)
--- NOTE | 2021-01-28 19:29 | DS ---
DATE OF DISCHARGE: 01/28/2021 PRIMARY DIAGNOSIS: Acute exacerbation of chronic obstructive pulmonary disease with acute hypoxic respiratory failure. ADDITIONAL DIAGNOSES: Obesity, history of seizure, COVID-19 negative. Abnormal chest x-ray. CHIEF COMPLAINT/HISTORY OF PRESENT ILLNESS: This 45-year-old male admitted through the Emergency Room, exacerbation of COPD, shortness of breath and respiratory failure. The patient was admitted. Initial white count was elevated at 17,000. He was started on steroids, another one was not checked. His initial pCO2 on 6 liters was 66. He did have an elevated bicarbonate, suggesting that he runs of this range. CMP was essentially unremarkable. COVID testing was negative. Urinalysis showed no evidence of infection. Chest x-ray showed mild increase in interstitial prominence as compared to his prior exam, maybe to reflect interstitial pneumonitis or edema. SUMMARY OF STAY: The patient was treated with antibiotics, steroids, fluids, pulmonary toilet, pulmonary consultation, improved on a daily basis, went from [place] 6 liters per nasal cannula, maintain O2 sats at room air per nursing when they called me on the evening of discharge. Pulmonary had felt the patient is safe for discharge on a steroid taper and doxycycline and thus this was accomplished. DISPOSITION: The patient is discharged to home. DIET: Regular diet. ACTIVITY: As tolerated. FOLLOWUP: Office of Dr. Ignacio in 1-2 weeks. DISCHARGE MEDICATIONS: Listed on the med rec and have been addressed. ABBY/MIRIAN DR: Gentry TID: [id number]
[2021-01-28] MEDS ORDERED: LACTOBACILLUS RHAMNOSUS GG 1 CAPSULE. PO SCH (21:00)
== END 2021-01-28 18:39 | disposition home or self-care (01) | DRG 189 ==
LOC: ER 05:49 → ED HOLD 09:20 → ER 11:37 → 5 NORTH 11:41
PROVIDERS: ADMIT Family Medicine; ATTEND Family Medicine
DX: J96.01 Acute respiratory failure with hypoxia (principal); J44.1 Chronic obstructive pulmonary disease with (acute) exacerbation; J44.0 Chronic obstructive pulmonary disease with (acute) lower respiratory infection; E66.9 Obesity, unspecified; F17.200 Nicotine dependence, unspecified, uncomplicated; G47.33 Obstructive sleep apnea (adult) (pediatric); J20.9 Acute bronchitis, unspecified; Z20.822 Contact with and (suspected) exposure to COVID-19; Z82.49 Family history of ischemic heart disease and other diseases of the circulatory system; Z96.649 Presence of unspecified artificial hip joint; F41.9 Anxiety disorder, unspecified; F90.9 Attention-deficit hyperactivity disorder, unspecified type; G89.29 Other chronic pain; J84.89 Other specified interstitial pulmonary diseases; Z68.29 Body mass index [BMI] 29.0-29.9, adult
CPT/HCPCS: 36415; 36600; 71045; 80053; 81001; 82805; 83605; 83880; 84484; 85007; 85025; 87040; 90471; 90686; 93005; 94640; 94760; 96374; 96375; J0456; J0696; J1650; J2405; J2920; J7030; J7050; U0003; U0005; 99285-25; G0378; J7613